=== PATIENT | male | born 1940 | race Caucasian/White ===

== ENCOUNTER → 2021-09-07 13:42 | Outpatient (BNVA) | payer MEDICARE, OTHER, SELFPAY | PROVIDERS: PCP Physician Assistant Medical; Visit Provider Nurse Practitioner Family | DX: G62.9 Polyneuropathy, unspecified (principal); M96.1 Postlaminectomy syndrome, not elsewhere classified; Z87.81 Personal history of (healed) traumatic fracture; Z87.898 Personal history of other specified conditions | CPT/HCPCS: 99202 ==

== ENCOUNTER 2021-09-15 13:18 | Outpatient (REF) | payer MEDICARE, OTHER, SELFPAY ==
--- NOTE | ~2021-09-15 | MR_ITS ---
MR LUMBAR SPINE WITHOUT AND WITH CONTRAST CLINICAL INFORMATION: Personal history of healed traumatic fracture. COMPARISON: None available. TECHNIQUE: MRI of the lumbar spine was obtained using routine sequences with and without contrast. Intravenous contrast: Gadavist 7.5 mL FINDINGS: There are 5 nonrib-bearing lumbar-type vertebral bodies. There is grade 1 retrolisthesis of L1 on L2, L2 on L3, and L3 on L4. There is grade 1 anterolisthesis of L5 on S1 in the setting of a chronic appearing left-sided L5 pars defect. There is grade 1 anterolisthesis of L4 on L5 as well. Chronic vertebral body burst fracture at L1 exhibiting 4 mm retropulsion that mildly narrows the central canal. The remaining vertebral body heights are maintained. There is no bone marrow edema to suggest an acute fracture. There are no suspicious enhancing intraosseous lesions. There is no pathologic intrathecal enhancement. There are multilevel endplate osteophytes. There is severe disc volume loss at L3-L4 and L5-S1. Disc desiccation at all lumbar levels. Conus terminates at the T12-L1 level. There is bilateral perinephric stranding. Colonic diverticulosis partially imaged. T12-L1: L1 upper endplate retropulsion mildly narrows the central canal. There is no foraminal stenosis. L1-L2: Grade 1 retrolisthesis. Diffuse annular disc bulge and mild bilateral hypertrophic facet arthropathy. There is no central canal stenosis. There is moderate right and mild left foraminal stenosis with mass effect on the exiting right L1 nerve root. L2-L3: Grade 1 retrolisthesis. Diffuse annular disc bulge and moderate bilateral facet arthropathy and ligamentum flavum thickening. No central canal stenosis. Moderate right-sided foraminal stenosis with mass effect on the exiting right L2 nerve root. L3-L4: There is grade 1 retrolisthesis. Diffuse disc osteophyte and severe bilateral facet arthropathy and ligamentum flavum thickening. Moderate central canal stenosis. Disc osteophyte and facet arthropathy result in severe bilateral foraminal stenosis with compression of the exiting L3 nerve roots bilaterally. L4-L5: There is grade 1 anterolisthesis. Uncovered disc osteophyte and severe bilateral facet arthropathy and ligamentum flavum thickening. Findings in concert result in moderate to severe central canal stenosis, bilateral subarticular zone stenosis with mass effect on the traversing L5 nerve roots bilaterally, and severe left foraminal stenosis with compression of the exiting left L4 nerve root. Laminectomy changes at this level. There is enhancing granulation/scar tissue within the epidural space at L4-L5. L5-S1: Grade 1 spondylolytic anterolisthesis. There is a left-sided L5 pars defect. Uncovered disc osteophyte. Severe bilateral facet arthropathy and ligamentum flavum thickening. Severe left and moderate right foraminal stenosis with compression of the exiting left L5 nerve root and mild mass effect on the exiting right L5 nerve root. A far left lateral disc osteophyte protrusion also compresses the extra foraminal left L5 nerve root. MR/MR lumbar spine wo/w con IMPRESSION: - Chronic vertebral body burst fracture at L1 exhibiting upper endplate retropulsion that mildly narrows the central canal. No acute fractures. - At L5-S1, there is grade 1 spondylolytic anterolisthesis in the setting of a chronic left-sided L5 pars defect that along with uncovered disc osteophyte results in severe left and moderate right foraminal stenosis with compression of the exiting left L5 nerve root and mild mass effect on the exiting right L5 nerve root. A far left lateral disc osteophyte protrusion also compresses the extra foraminal left L5 nerve root. - At L4-L5, grade 1 anterolisthesis and advanced multifactorial degenerative changes result in moderate to severe central canal stenosis, bilateral subarticular zone stenosis with mass effect on the traversing L5 nerve roots bilaterally, and severe left foraminal stenosis with compression of the exiting left L4 nerve root. Laminectomy changes at this level. There is enhancing granulation/scar tissue within the epidural space at L4-L5. - At L3-L4, multifactorial degenerative changes result in moderate central canal stenosis as well as severe bilateral foraminal stenosis with compression of the exiting L3 nerve roots bilaterally. - At L1-L2 and L2-L3, spondylitic changes result in moderate right-sided foraminal stenosis with mass effect on the exiting right nerve roots at these levels.
== END 2021-09-15 13:19 | disposition home or self-care (01) ==
LOC: HO.MRI 13:18
PROVIDERS: Visit Provider Nurse Practitioner Family
DX: G62.9 Polyneuropathy, unspecified (principal); M96.1 Postlaminectomy syndrome, not elsewhere classified; Z87.81 Personal history of (healed) traumatic fracture
CPT/HCPCS: 72158; A9585

== ENCOUNTER → 2021-10-01 14:06 | Outpatient (BNVA) | payer MEDICARE, OTHER, SELFPAY | PROVIDERS: PCP Physician Assistant Medical; Visit Provider Nurse Practitioner Family | DX: M96.1 Postlaminectomy syndrome, not elsewhere classified (principal); G62.9 Polyneuropathy, unspecified; Z87.81 Personal history of (healed) traumatic fracture; Z87.898 Personal history of other specified conditions | CPT/HCPCS: Q3014 ==

== ENCOUNTER → 2021-11-17 14:08 | Outpatient (BNVA) | payer MEDICARE, OTHER, SELFPAY | PROVIDERS: PCP Physician Assistant Medical; Visit Provider Anesthesiology | DX: M96.1 Postlaminectomy syndrome, not elsewhere classified (principal); G62.9 Polyneuropathy, unspecified; Z87.81 Personal history of (healed) traumatic fracture; Z87.898 Personal history of other specified conditions | CPT/HCPCS: 99212 ==

== ENCOUNTER → 2021-12-13 16:07 | Outpatient (BNVA) | payer MEDICARE, OTHER, SELFPAY | PROVIDERS: PCP Physician Assistant Medical; Visit Provider Anesthesiology | DX: M96.1 Postlaminectomy syndrome, not elsewhere classified (principal); G62.9 Polyneuropathy, unspecified; Z87.81 Personal history of (healed) traumatic fracture; Z87.898 Personal history of other specified conditions; M47.27 Other spondylosis with radiculopathy, lumbosacral region | CPT/HCPCS: Q3014 ==

== ENCOUNTER 2022-01-04 06:09 | Outpatient (REF) | payer MEDICARE, OTHER, SELFPAY ==
--- NOTE | ~2022-01-04 | FL_ITS ---
EXAMINATION: XR FLUOROSCOPY WITH IMAGES CLINICAL INFORMATION: M47.27 - Other spondylosis with radiculopathy, lumbosacral region COMPARISON: MR lumbar spine 09/15/2021 TECHNIQUE: Fluoroscopy performed by Dr. Sheldon Rosado. Fluoroscopy time: 0.6 minutes. Cumulative Dose: 10.3 mGy. DAP: 2.66 Gy-cm2. Images: 2. FINDINGS: There are spinal needles overlying the outer left L4 and L5 neural foramen. There is contrast seen in the respective nerve sheaths. Some early transforaminal epidural extension is suggested. No visible vascular communication. There are degenerative changes lumbar spine with multilevel disc narrowing and vertebral spurring. FL/FL guidance in treatment room IMPRESSION: Fluoroscopy for pain management procedures.
== END 2022-01-04 06:10 | disposition home or self-care (01) ==
LOC: CF 06:09
PROVIDERS: Visit Provider Anesthesiology
DX: M47.27 Other spondylosis with radiculopathy, lumbosacral region (principal); M48.061 Spinal stenosis, lumbar region without neurogenic claudication; M96.1 Postlaminectomy syndrome, not elsewhere classified; Z87.81 Personal history of (healed) traumatic fracture; Z87.898 Personal history of other specified conditions
CPT/HCPCS: 64483; 64484

== ENCOUNTER → 2022-01-31 08:28 | Outpatient (BNVA) | payer MEDICARE, OTHER, SELFPAY | PROVIDERS: PCP Physician Assistant Medical; Visit Provider Anesthesiology | DX: M96.1 Postlaminectomy syndrome, not elsewhere classified (principal); G62.9 Polyneuropathy, unspecified; M47.27 Other spondylosis with radiculopathy, lumbosacral region; Z87.81 Personal history of (healed) traumatic fracture; Z87.898 Personal history of other specified conditions | CPT/HCPCS: 99212 ==

== ENCOUNTER 2022-04-12 06:22 | Outpatient (REF) | payer MEDICARE, OTHER, SELFPAY | END 2022-04-12 06:23 | disposition home or self-care (01) | LOC: CF 06:22 | PROVIDERS: Visit Provider Anesthesiology | DX: Z13.89 Encounter for screening for other disorder (principal) ==

== ENCOUNTER 2022-04-19 06:04 | Outpatient (REF) | payer MEDICARE, OTHER, SELFPAY ==
--- NOTE | ~2022-04-19 | FL_ITS ---
EXAMINATION: XR FLUOROSCOPY WITH IMAGES CLINICAL INFORMATION: Other spondylosis with radiculopathy. COMPARISON: None. TECHNIQUE: Fluoroscopy Supervised By: LENIN Leal. Fluoroscopy Time: 0.8 minutes. Cumulative Dose: 10.7 mGy. DAP: 2.93 Gycm2. Images: 2. FINDINGS: There is a needle positioned adjacent to the inferior endplate of L4 vertebra with contrast opacifying the soft tissues. Loss of L3-L4, L4-L5 and L5-S1 disc heights with mild spondylosis noted. No lytic or sclerotic process. The SI joints faintly visualized are normal. FL/FL guidance in treatment room IMPRESSION: Fluoroscopy guidance was provided to the referrer for pain management.
== END 2022-04-19 06:05 | disposition home or self-care (01) ==
LOC: CF 06:04
PROVIDERS: Visit Provider Anesthesiology
DX: M47.27 Other spondylosis with radiculopathy, lumbosacral region (principal); M96.1 Postlaminectomy syndrome, not elsewhere classified; G62.9 Polyneuropathy, unspecified; Z87.81 Personal history of (healed) traumatic fracture; Z87.898 Personal history of other specified conditions
CPT/HCPCS: 64483; 64484

== ENCOUNTER → 2022-05-23 09:24 | Outpatient (BNVA) | payer MEDICARE, OTHER, SELFPAY | PROVIDERS: PCP Physician Assistant Medical; Visit Provider Anesthesiology | DX: M96.1 Postlaminectomy syndrome, not elsewhere classified (principal); M47.27 Other spondylosis with radiculopathy, lumbosacral region; G62.9 Polyneuropathy, unspecified; G89.4 Chronic pain syndrome; Z87.81 Personal history of (healed) traumatic fracture; Z87.898 Personal history of other specified conditions | CPT/HCPCS: Q3014 ==

== ENCOUNTER 2022-06-03 07:15 | Day surgery (SDC) | payer MEDICARE, OTHER, SELFPAY ==
[2022-05-30 16:27] VITALS: BMI 26.3
--- NOTE | 2022-06-02 11:52 | HO.ANESPROP2 ---
Documented by User: Ivonne Bellamy NP 06/02/22 11:54 HPI - Anesthesia Eval Consult details Narrative: 82yo M for Spinal Cord Stimulator Trial [facility] Active Problems Active Problems: All Active Problems (Updated 05/23/22 @ 09:38 by Sheldon Rosado MD) Chronic pain syndrome (Acute) Spondylosis of lumbosacral spine with radiculopathy (Acute) Lumbar facet arthropathy (Acute) Stenosis, spinal, lumbar (Acute) Preprocedural examination (Acute) History of prediabetes (Acute) H/O compression fracture of spine (Acute) Postlaminectomy syndrome, lumbar (Acute) Peripheral neuropathy (Acute) Past Medical History Medical History (Updated 06/03/22 @ 07:54 by Corinne Monteiro RN) BPH (benign prostatic hyperplasia) Degenerative disc disease, lumbar Depression History of prediabetes HLD (hyperlipidemia) HTN (hypertension) Hx of sleep apnea Surgical History Surgical History (Updated 06/03/22 @ 07:55 by Corinne Monteiro RN) Hx of bilateral cataract extraction Hx of carpal tunnel repair Hx of colonoscopy Hx of inguinal hernia repair Hx of tonsillectomy Previous back surgery Social History Social History Patient Tobacco Use Status: Never used Tobacco Use of substances other than those prescribed or required for medical reasons: No Are you DNR?: Yes Advance Directives: No Advance Directives Information Provided: Yes Meds Allergies Allergy/AdvReac Type Severity Reaction Status Date / Time No Known Allergies Allergy Verified 06/03/22 07:55 Home Medications Medication Instructions Recorded Confirmed Last Taken Type atorvastatin 20 mg tablet 20 mg PO DAILY 09/07/21 05/23/22 Unknown History glucos 500 mg-chond 66.7 mg-msm tab PO 09/07/21 05/23/22 Unknown History 500 mg-hyalur 1.1 mg-regis borate tablet (Move Free Plus MSM) losartan 25 mg tablet 25 mg PO DAILY 09/07/21 05/23/22 Unknown History sertraline 100 mg tablet 100 mg PO DAILY 09/07/21 05/23/22 Unknown History tamsulosin 0.4 mg capsule 0.4 mg PO DAILY 09/07/21 05/23/22 Unknown History Fish Oil PO DAILY 06/03/22 Unknown History ferrous sulfate PO DAILY 06/03/22 Unknown History Exam Exam Date and Time: June 02, 2022 1152 Height,Weight and Vital Signs: Height 5 ft 7 in Weight 76.204 kg Assessment and Plan Assessment Anesthesia Assessment: Chart Reviewed Documented by User: Sen Goncalves MD 06/03/22 08:19 [facility] Past Medical History Medical History (Updated 06/03/22 @ 07:54 by Corinne Monteiro, JJ) BPH (benign prostatic hyperplasia) Degenerative disc disease, lumbar Depression History of prediabetes HLD (hyperlipidemia) HTN (hypertension) Hx of sleep apnea Family History Family history of problems with anesthesia: No Surgical History Surgical History (Updated 06/03/22 @ 07:55 by Corinne Monteiro, JJ) Hx of bilateral cataract extraction Hx of carpal tunnel repair Hx of colonoscopy Hx of inguinal hernia repair Hx of tonsillectomy Previous back surgery History of Problems with Anesthesia: No Social History Social History Patient Tobacco Use Status: Never used Tobacco Use of substances other than those prescribed or required for medical reasons: No Are you DNR?: Yes Advance Directives: No Advance Directives Information Provided: Yes Meds Allergies Allergy/AdvReac Type Severity Reaction Status Date / Time No Known Allergies Allergy Verified 06/03/22 07:55 Home Medications Medication Instructions Recorded Confirmed Last Taken Type atorvastatin 20 mg tablet 20 mg PO DAILY 09/07/21 05/23/22 Unknown History glucos 500 mg-chond 66.7 mg-msm tab PO 09/07/21 05/23/22 Unknown History 500 mg-hyalur 1.1 mg-regis borate tablet (Move Free Plus MSM) losartan 25 mg tablet 25 mg PO DAILY 09/07/21 05/23/22 Unknown History sertraline 100 mg tablet 100 mg PO DAILY 09/07/21 05/23/22 Unknown History tamsulosin 0.4 mg capsule 0.4 mg PO DAILY 09/07/21 05/23/22 Unknown History Fish Oil PO DAILY 06/03/22 Unknown History ferrous sulfate PO DAILY 06/03/22 Unknown History Exam Airway Mallampati Class: II TM Dist: <=3cm Neck ROM: Limited Heart: rrr Lungs: cta Assessment and Plan Assessment Anesthesia Assessment: Anesthesia Plan Discussed Final Anesthetic Review Family History of Problems with Anesthesia: No History of Problems with Anesthesia: No NPO: Yes ASA Class: II Final Preanesthetic Review: No Changes in Pt Med Stat, Meds/Allgs Chart Reviewed, Consent Obtained/Reviewed and Anes Risks/Benef Reviewed Patient Risk: Intermediate Procedure Risk: Low Anesthetic Plan Anesthetic Plan: GA Disposition: Standard PACU
[2022-06-03] VITALS (13 sets, daily range): BP systolic 117–158; BP diastolic 63–88; PULSE 47–72; RESP 14–18; TEMP 36.2–36.4; O2SAT 95–99
--- NOTE | ~2022-06-03 | FL_ITS ---
EXAMINATION: XR FLUOROSCOPY WITH IMAGES CLINICAL INFORMATION: Spinal cord stimulator trial. COMPARISON: None available. TECHNIQUE: Fluoroscopy Supervised By: Dr. Sheldon Rosado. Fluoroscopy Time: 5.8 minutes. Cumulative Dose: 89.6 mGy. DAP: 22.5 Gycm2. Images: 2. FINDINGS: There are 2 lateral images revealing spinal stimulator positioned in the posterior epidural space in the lower dorsal spine. Visualized bones are grossly unremarkable. FL/FL guidance in OR IMPRESSION: Fluoroscopy was provided to referring physician for spinal stimulator trial.
[2022-06-03] MEDS: Lactated Ringers 1,000 ML 100 ML IVCONT (08:22)
--- NOTE | 2022-06-03 08:36 | MHC.SHP ---
Pre-Procedural Eval Section A Date of Service: 06/03/22 The patient is an INPATIENT: No Changes since office visit: Yes Patient answered all questions The History & Physical has been completed within 30 days and I have reviewed it.: No Section B Chief Complaint: Postlaminectomy syndrome, Chronic pain syndrome Details of Present Illness: as above Relevant Family History (Specify if Yes): No Relevant Social History: None Present Medications: see Short Stay Collaborative assessment Medical History: No relevant PMH History of Previous Operations: No relevant previous surgery Allergies: Allergies Allergy/AdvReac Type Severity Reaction Status Date / Time No Known Allergies Allergy Verified 06/03/22 07:55 Review of Systems Sugical H&P ROS: Negative: Constitution, Cardiovascular, Respiratory, Neurological, Psychiatric, Hem-Onc, Allergic/Immunologic, Gastrointestinal, Genitourinary, Musculoskeletal, Integumentary, Endocrine and Eyes/Ears/Nose/Throat Exam Surgical H&P Exam: Normal: HEENT, Normal: Heart, Normal: Lungs, Normal: Extremities, Normal: Abdomen, Normal: Skin and Normal: Neurological Plan Diagnosis/Plan: Unchanged I have reviewed the history and physical and performed a pertinent physical examination on my patient. No changes have occurred unless specified. Time Spent With Patient Time: Total time managing care of this patient today ____ minutes.
--- NOTE | 2022-06-03 08:43 | W.PM.OPN ---
Operative Note Operative Note Date of Service: 06/03/22 Narrative: Mr. Marcano who came today into the operating room for the trial of spinal cord stimulator Nevro for the treatment of postlaminectomy syndrome pain and perypheral polyneuropathy... Preoperatively patient received? Cefazolin 2 g? approximately 30 min before procedure. After obtaining informed consent patient was brought to the operating room, HE was positioned? supine on the stretcher, [place] monitors were applied and patient was? administered general endotracheal anesthesia.? After that patient was transferred prone to the operating room table with all pressure points protected.? ? Time-out was performed delineating correct site, side, the nature of the procedure, patient's allergy, preoperative antibiotic if needed.? All operating room staff was participating in OR time-out procedure. Patient's entire back was prepped with ChloraPrep twice and draped with full body fenestrated drape.? Sterilely draped C-arm was brought over operating field and sqare picture of T11-T12, L1, L2 vertebrae as were demonstrated on the screen.? On the image L1-[id number] space was very narrow it would need an angle close to perpendicular to the skin epidural needle insertion. Advancement of the epidural leads was problematic to this angle in correct anatomical position. The decision was made to concentrate the attention on T12- L1 interlaminar spave.? The location of the projection of the right pedicle center of the _L2 vertebra was found on the skin using C-arm.? This location was injected with mixture of lidocaine 2% and Marcaine 0.5% 5 cc.? After that 11 blade was used to make a vy on the skin.? 10 cm 14 gauge introducer epidural needle was inserted through the vy and advanced to L1-L2 epidural interspace.? The advancement of the needle was performed on anterior posterior and lateral views.?YAMILA to air was used to detect epidural space. ? That advancement was proven to be very difficult.? Multiple attempts were made to reach epidural space with proper angle of the epidural needle.? Eventually epidural space was found however the guitar wire inserted through the needle went inrathecally and CSF was detected at the needle. The needle was withdrawn and pressure was applied.?The decision was made to switch the target to L2- L3 epidural interspace . There the epidural space was detected and located uneventfully however the advancement of the epidural stimulating lead was very difficult due to proximity of the site to the site of the surgery of the patient and formation of the epidural adhesions.. The decision was made to switch the target to [id number] interspace.? Introducer epidural needle was brought up on the? table and inserted through the skin in the projection of the L1 pedicle on the right. the needle was advancing to were the [id number] interspace on anterior posterior and lateral views.Guitar wire and loss of resistance technique were used to locate epidural space.? When guitar wire was spread in the epidural fashion, epidural lead was inserted through the needle and it was advanced to top T8 position PRACTICALLY at THE MIDLINE in the posterior epidural space.? After that location of the projection of the LEFT pedicle center of the L1 vertebra was found on the skin using C-arm.? This location was injected with mixture of lidocaine 2% and Marcaine 0.5% 5 cc.? After that 11 blade was used to make a vy on the skin.? 10 cm 14 gauge? introducer epidural needle was inserted through the vy and advanced toT11- T12 epidural interspace.? The advancement of the needle was done on AP and lateral views, YAMILA to air was used to detect epidural space, guitar wire was advanced to the needle and was spreading in epidural fashion and after that epidural stimulation lead was inserted through the needle and was advancing to the posterior epidural space to the level of T9 upper third of the vertebra with the position slightly left to midline wire. The position of the leads verified on anterior posterior and lateral views,The stilets and epidural needle were withdrawn and care was taken not to dislodge the epidural leads. The anchoring devices were dislodged on the leads and advanced to the level of the skin.? The anchoring device was sutured with two 0-0 silk sutures for each anchor to the skin of the patient.? The screws were tighten on the anchoring devices until 3 clicks were heard. The leads were connected to testing device.? Bacitracin ointment was applied to the entrance point of the needle entrance on the right.? the contralateral left vy on the skin was glued with Mastisol and covered with to Steri-Strips.? Sterile dressing applied.? The lead was connected to stimulating device which was taped to the skin. The impedance was checked and it was appropriate. The patient tolerated procedure well.? He was taking outside of the operating room to recovery room where he recovered uneventfully. He was examined postoperatively and found to have no neurological deficits. Risk of PDPH was explained to the patient.
--- NOTE | 2022-06-03 10:54 | P.BOP_ITS ---
Brief Operative Note Date of Service: 06/03/22 Pre-op diagnosis: postlaminectomy syndrome Post-op diagnosis: same Procedure: trial of Nevro SCS Implants: none permanent Surgeon: Sheldon Rosado MD Anesthesia: GETA Was an [employer]person [employer] used for this Procedure?: No Estimated blood loss (mL): 4 Condition: stable Disposition: PACU
== END 2022-06-03 13:40 | disposition home or self-care (01) ==
PROVIDERS: PCP Pediatrics; Visit Provider Anesthesiology
PROC: (CPT 63650; principal; 2022-06-03 09:00)
DX: M96.1 Postlaminectomy syndrome, not elsewhere classified (principal); G62.9 Polyneuropathy, unspecified; M48.061 Spinal stenosis, lumbar region without neurogenic claudication; M47.27 Other spondylosis with radiculopathy, lumbosacral region; M51.36 Other intervertebral disc degeneration, lumbar region; G89.4 Chronic pain syndrome; G47.33 Obstructive sleep apnea (adult) (pediatric); R73.03 Prediabetes; Z79.899 Other long term (current) drug therapy; Z87.81 Personal history of (healed) traumatic fracture; Z87.898 Personal history of other specified conditions; Z66 Do not resuscitate
CPT/HCPCS: 63650 ×2; C1713; C1897; J0690; J1100; J2370; J2405; J2795

== ENCOUNTER → 2022-06-09 09:46 | Outpatient (BNVA) | payer MEDICARE, OTHER, SELFPAY | PROVIDERS: PCP Pediatrics; Visit Provider Anesthesiology | DX: G89.4 Chronic pain syndrome (principal); M47.27 Other spondylosis with radiculopathy, lumbosacral region; G62.9 Polyneuropathy, unspecified; M96.1 Postlaminectomy syndrome, not elsewhere classified; Z87.81 Personal history of (healed) traumatic fracture; Z87.898 Personal history of other specified conditions | CPT/HCPCS: 99212 ==

== ENCOUNTER 2022-07-08 07:28 | Day surgery (SDC) | payer MEDICARE, OTHER, SELFPAY ==
[2022-07-05 16:39] VITALS: BMI 25.2
--- NOTE | 2022-07-07 10:51 | P.CONAN_ITS ---
Documented by User: Ivonne Bellamy NP 07/07/22 10:52 HPI - Anesthesia Eval Consult details Narrative: 82yo M for Lumbar Spinal Stimulation Implant s/p trial 05/2022 with GA-ETT 8 PMFSH Active Problems Active Problems: All Active Problems (Updated 06/03/22 @ 07:54 by Corinne Monteiro, JJ) Peripheral neuropathy (Acute) Postlaminectomy syndrome, lumbar (Acute) H/O compression fracture of spine (Acute) Preprocedural examination (Acute) Stenosis, spinal, lumbar (Acute) Lumbar facet arthropathy (Acute) Spondylosis of lumbosacral spine with radiculopathy (Acute) Chronic pain syndrome (Acute) Past Medical History Medical History (Updated 06/03/22 @ 07:54 by Corinne Monteiro RN) BPH (benign prostatic hyperplasia) Degenerative disc disease, lumbar Depression History of prediabetes HLD (hyperlipidemia) HTN (hypertension) Hx of sleep apnea Family History Family history of problems with anesthesia: No Surgical History Surgical History (Updated 06/03/22 @ 07:55 by Corinne Monteiro RN) Hx of bilateral cataract extraction Hx of carpal tunnel repair Hx of colonoscopy Hx of inguinal hernia repair Hx of tonsillectomy Previous back surgery History of Problems with Anesthesia: No Social History Social History Patient Tobacco Use Status: Never used Tobacco Meds Allergies Allergy/AdvReac Type Severity Reaction Status Date / Time No Known Allergies Allergy Verified 06/09/22 10:08 Home Medications Medication Instructions Recorded Confirmed Last Taken Type atorvastatin 20 mg tablet 20 mg PO DAILY 09/07/21 06/09/22 Unknown History glucos 500 mg-chond 66.7 mg-msm tab PO 09/07/21 06/09/22 Unknown History 500 mg-hyalur 1.1 mg-regis borate tablet (Move Free Plus MSM) losartan 25 mg tablet 25 mg PO DAILY 09/07/21 06/09/22 Unknown History sertraline 100 mg tablet 100 mg PO DAILY 09/07/21 06/09/22 Unknown History tamsulosin 0.4 mg capsule 0.4 mg PO DAILY 09/07/21 06/09/22 Unknown History Fish Oil PO DAILY 06/03/22 06/09/22 Unknown History ferrous sulfate PO DAILY 06/03/22 06/09/22 Unknown History Exam Exam Date and Time: July 07, 2022 1051 Height,Weight and Vital Signs: Height 5 ft 7 in Weight 73.028 kg Assessment and Plan Assessment Anesthesia Assessment: Chart Reviewed Final Anesthetic Review Family History of Problems with Anesthesia: No History of Problems with Anesthesia: No Documented by User: Albert Jolley MD 07/08/22 08:08 REPLACED BY [facility] Past Medical History Medical History (Updated 06/03/22 @ 07:54 by Corinne Monteiro, RN) BPH (benign prostatic hyperplasia) Degenerative disc disease, lumbar Depression History of prediabetes HLD (hyperlipidemia) HTN (hypertension) Hx of sleep apnea Surgical History Surgical History (Updated 06/03/22 @ 07:55 by Corinne Monteiro RN) Hx of bilateral cataract extraction Hx of carpal tunnel repair Hx of colonoscopy Hx of inguinal hernia repair Hx of tonsillectomy Previous back surgery Social History Social History Patient Tobacco Use Status: Never used Tobacco Meds Allergies Allergy/AdvReac Type Severity Reaction Status Date / Time No Known Allergies Allergy Verified 06/09/22 10:08 Home Medications Medication Instructions Recorded Confirmed Last Taken Type atorvastatin 20 mg tablet 20 mg PO DAILY 09/07/21 06/09/22 Unknown History glucos 500 mg-chond 66.7 mg-msm tab PO 09/07/21 06/09/22 Unknown History 500 mg-hyalur 1.1 mg-regis borate tablet (Move Free Plus MSM) losartan 25 mg tablet 25 mg PO DAILY 09/07/21 06/09/22 Unknown History sertraline 100 mg tablet 100 mg PO DAILY 09/07/21 06/09/22 Unknown History tamsulosin 0.4 mg capsule 0.4 mg PO DAILY 09/07/21 06/09/22 Unknown History Fish Oil PO DAILY 06/03/22 06/09/22 Unknown History ferrous sulfate PO DAILY 06/03/22 06/09/22 Unknown History Exam Airway Mallampati Class: I TM Dist: >3cm Loose/Missing/Broken Teeth: Yes and Lower Heart: rrr Lungs: clear Assessment and Plan Final Anesthetic Review NPO: Yes ASA Class: I Patient Risk: Low Procedure Risk: Low Anesthetic Plan Anesthetic Plan: GA Disposition: Standard PACU
[2022-07-08] VITALS (9 sets, daily range): BP systolic 129–151; BP diastolic 55–84; PULSE 57–78; RESP 15–18; TEMP 36.2–37.2; O2SAT 94–99
--- NOTE | ~2022-07-08 | FL_ITS ---
EXAMINATION: XR FLUOROSCOPY WITH IMAGES CLINICAL INFORMATION: Lumbar spinal stimulator implant COMPARISON: MR lumbar spine 09/15/2020 TECHNIQUE: Fluoroscopy Supervised By: Dr. Sheldon Rosado. Fluoroscopy Time: 1.8 minutes. Cumulative Dose: 32.1 mGy. DAP: 8.75 Gycm2. Images: 3. FINDINGS: There are 2 spinal stimulator electrodes seen ascending the posterior spinal canal. The electrode tips are at level of mid to mid lower thoracic spine. There is no visible kinking or defect of the leads. FL/FL guidance in OR IMPRESSION: Fluoroscopy for pain management procedure.
[2022-07-08] MEDS: Lactated Ringers 1,000 ML 100 ML IVCONT (08:16)
--- NOTE | 2022-07-08 08:41 | PC.NURSE ---
Dr. Rosado stated he does not want MRSA screen as ordered.
--- NOTE | 2022-07-08 08:48 | P.HPSUR_ITS ---
Pre-Procedural Eval Section A Date of Service: 07/08/22 The patient is an INPATIENT: No Changes since office visit: Yes Patient answered all questions The History & Physical has been completed within 30 days and I have reviewed it.: No Section B Chief Complaint: Postlaminectomy syndrome, not elsewhere classified Details of Present Illness: as above Relevant Family History (Specify if Yes): No Relevant Social History: None Present Medications: see Short Stay Collaborative assessment Medical History: No relevant PMH History of Previous Operations: Relevant previous surgery/procedure and date(s) Allergies: Allergies Allergy/AdvReac Type Severity Reaction Status Date / Time No Known Allergies Allergy Verified 06/09/22 10:08 Review of Systems Sugical H&P ROS: Negative: Constitution, Cardiovascular, Respiratory, Neurological, Psychiatric, Hem-Onc, Allergic/Immunologic, Gastrointestinal, Genitourinary, Musculoskeletal, Integumentary, Endocrine and Eyes/Ear s/Nose/Throat Exam Surgical H&P Exam: Normal: HEENT, Normal: Heart, Normal: Lungs, Normal: Extremities, Normal: Abdomen, Normal: Skin and Normal: Neurological Plan Diagnosis/Plan: Unchanged I have reviewed the history and physical and performed a pertinent physical examination on my patient. No changes have occurred unless specified. Time Spent With Patient Time: Total time managing care of this patient today ___10_ minutes.
--- NOTE | 2022-07-08 11:22 | PM.OP ---
Brief Operative Note Date of Service: 07/08/22 Pre-op diagnosis: postlaminectomy syndrome Post-op diagnosis: same Procedure: implantation of Nevro SCS Implants: Omnia SCS battery and two epidural leads Surgeon: Sheldon Rosado MD Anesthesia: GETA Was an Information [employer] Systems Instructor used for this Procedure?: No Estimated blood loss (mL): 10 Pathology: none sent Condition: stable Disposition: PACU
--- NOTE | 2022-07-08 11:24 | W.PM.OPN ---
Operative Note Operative Note Date of Service: 07/08/22 Narrative: Jairo is very pleasant 82 y.o. gentleman who came today into the operating room for trial of spinal cord stimulator [employer] for the treatment of postlaminectomy syndrome pain. ?Preoperatively patient received ? cefazolin 2 g approximately 10 minutes before the procedure. After obtaining informed consent the patient was brought to the operating room, HE was positioned supine on the bed , [place] [employer] monitors were applied and GETA was induced. The patient was transferred on the operating table prone , all pressure points were protected. ?Time-out was performed delineating correct site, side, the nature of the procedure, patient's allergy, preoperative antibiotic if needed.? All operating room staff was participating in OR time-out procedure. Patient's entire back was prepped with Chloraprep twice and draped with full body fenestrated laparoscopy drape including ioban film.? Sterilely draped C-arm was brought over operating field and square picture of the ?T11 T12-L1 L2 vertebrae? were demonstrated on the screen. Local anesthetic was injected in the projection of the T12-L1 spinous processes and after that 6 cm long incision was me strictly in the midline. The incision was widened and deepened using dull dissection and electrocautery device. WithLainer retractor was used to widen the wound And overlying tissues were freed until prevertebral fascia.. Thorough hemostasis was obtained using cautery. ?Attention FIRST? was concentrated on the T11 T12 epidural interspace.? The location of the projection of the right pedicle center of the L1 vertebra was found on the skin using C-arm.?10 cm 14 gauge? introducer epidural needle was inserted through the vy and advanced to? T11- T12 epidural interspace.? The advancement of the needle was performed on anterior posterior and lateral views. Loss of resistance to air? technique were used to locate epidural space., epidural lead was inserted through the needle and it was advanced to ? top of T8 vertebra projection strictly to the midline. ? . After that? the location of the projection of the LEFT pedicle center of the? L1 vertebra was found on the skin using C-arm.? This location was injected with mixture of lidocaine 2% and Marcaine 0.5% 5 cc.? 10 cm 14 gauge introducer epidural needle was inserted through the vy and advanced to T11-T12 epidural interspace.? The advancement of the needle was performed on anterior posterior and lateral views.? Guitar wire and loss of resistance to air technique were used to locate epidural space.? When guitar wire was spread in the epidural fashion, epidural lead was inserted through the needle and advanced to the top of T9 epidural interspace slightly? left to the existing electrode. On the lateral view the patient had the leads positioned in the posterior epidural space. After that the epidural introducer needles were removed with care taken to keep the epidural leads in place. Anchoring devices were obtained and they were dislodged on the bodies of the epidural leads till the reach the prevertebral fascia. 0-0 Tycron sutures were used to suture the anchoring devices to prevertebral fascia bilaterally. Care was taken not to dislodge epidural leads again. after that this anchoring screws were tightened on both sides until 2 clicks were heard. Wound was irrigating using normal saline mixed with vancomycin and packed with a vancomycin soaked 4 x 4. After that attention was concentrated on the patient's right loin area where patient wanted to implant the battery. Horizontal incision 6 cm long was me to cm below projection of the lowest Rib on the right. The incision was widened and deepened using dull dissection and electrocautery device. Thorough hemostasis was obtained. the pocket was formed extending caudad from the above described decision. Thorough hemostasis was obtained. Irrigation was performed with the solution as above. After that tunneling device was used to connect both wounds. The epidural leads were dislodged to the lateral wound. They were connected to omnia [employer] battery and screws were used to fix both leads in the body of the battery. Impedance was checked in was satisfactory. After that to anchoring 0-0 screws were made in most superior lateral and most superior medial corners of the wound. After that the anchoring sutures were connected to the orifices to the battery. The battery was dislodged into the wound With leads gathered behind the body of the battery. Anchoring sutures were tied. irrigation was performed. After that both wounds were closed using 0-0 Polysorb sutures, 0-2 police serve sutures were used to approximate the level of the skin and after that skin was closed with janette. Bacitracin ointment was applied to the staple lines. 4X4s were applied to the wounds. They were fixed to the skin with Tegaderm. Upon completion of the procedure patient was awaken extubated and taken to the PACU for recovery. He recovered uneventfully.
== END 2022-07-08 13:25 | disposition home or self-care (01) ==
PROVIDERS: PCP Pediatrics; Visit Provider Anesthesiology
PROC: (CPT 63685; principal; 2022-07-08 09:00)
DX: M96.1 Postlaminectomy syndrome, not elsewhere classified (principal); G89.4 Chronic pain syndrome; M47.27 Other spondylosis with radiculopathy, lumbosacral region; G62.9 Polyneuropathy, unspecified; M51.36 Other intervertebral disc degeneration, lumbar region; M21.70 Unequal limb length (acquired), unspecified site; I10 Essential (primary) hypertension; E78.5 Hyperlipidemia, unspecified; Z79.899 Other long term (current) drug therapy; Z66 Do not resuscitate; Z98.890 Other specified postprocedural states; Z87.898 Personal history of other specified conditions
CPT/HCPCS: 63685; 63650 ×2; C1713; C1778; C1787; C1816; J0690; J1100; J2405; J2795; J3010; J3370

== ENCOUNTER → 2022-07-14 09:51 | Outpatient (BNVA) | payer MEDICARE, OTHER, SELFPAY | PROVIDERS: PCP Pediatrics; Visit Provider Anesthesiology | DX: M96.1 Postlaminectomy syndrome, not elsewhere classified (principal); M47.27 Other spondylosis with radiculopathy, lumbosacral region; G62.9 Polyneuropathy, unspecified; G89.4 Chronic pain syndrome; Z96.82 Presence of neurostimulator; Z87.81 Personal history of (healed) traumatic fracture | CPT/HCPCS: 99212 ==

== ENCOUNTER → 2022-07-20 10:30 | Outpatient (BNVA) | payer MEDICARE, OTHER, SELFPAY | PROVIDERS: PCP Pediatrics; Visit Provider Anesthesiology | DX: M96.1 Postlaminectomy syndrome, not elsewhere classified (principal); M47.27 Other spondylosis with radiculopathy, lumbosacral region; G62.9 Polyneuropathy, unspecified; G89.4 Chronic pain syndrome; Z96.89 Presence of other specified functional implants; Z87.898 Personal history of other specified conditions; Z87.81 Personal history of (healed) traumatic fracture | CPT/HCPCS: 99212 ==

== ENCOUNTER → 2022-07-27 13:43 | Outpatient (BNVA) | payer MEDICARE, OTHER, SELFPAY | PROVIDERS: PCP Pediatrics; Visit Provider Anesthesiology | DX: M96.1 Postlaminectomy syndrome, not elsewhere classified (principal); M47.27 Other spondylosis with radiculopathy, lumbosacral region; G62.9 Polyneuropathy, unspecified; G89.4 Chronic pain syndrome; Z87.81 Personal history of (healed) traumatic fracture; Z87.898 Personal history of other specified conditions | CPT/HCPCS: 99212 ==

== ENCOUNTER → 2022-08-08 12:47 | Outpatient (BNVA) | payer MEDICARE, OTHER, SELFPAY | PROVIDERS: PCP Pediatrics; Visit Provider Anesthesiology | DX: M96.1 Postlaminectomy syndrome, not elsewhere classified (principal); M51.36 Other intervertebral disc degeneration, lumbar region; M47.27 Other spondylosis with radiculopathy, lumbosacral region; G89.4 Chronic pain syndrome; G62.9 Polyneuropathy, unspecified; Z87.81 Personal history of (healed) traumatic fracture; Z87.898 Personal history of other specified conditions | CPT/HCPCS: 99212 ==

== ENCOUNTER → 2022-09-19 15:16 | Outpatient (BNVA) | payer MEDICARE, OTHER, SELFPAY | PROVIDERS: PCP Pediatrics; Visit Provider Anesthesiology | DX: M96.1 Postlaminectomy syndrome, not elsewhere classified (principal); M47.27 Other spondylosis with radiculopathy, lumbosacral region; G62.9 Polyneuropathy, unspecified; G89.4 Chronic pain syndrome; G57.02 Lesion of sciatic nerve, left lower limb; Z87.81 Personal history of (healed) traumatic fracture; Z87.898 Personal history of other specified conditions | CPT/HCPCS: 99212 ==

== ENCOUNTER → 2022-10-20 10:51 | Outpatient (BNVA) | payer MEDICARE, OTHER, SELFPAY | PROVIDERS: PCP Pediatrics; Visit Provider Anesthesiology | DX: Z96.82 Presence of neurostimulator (principal) | CPT/HCPCS: 99211 ==

== ENCOUNTER → 2022-11-07 08:37 | Outpatient (BNVA) | payer MEDICARE, OTHER, SELFPAY | PROVIDERS: PCP Pediatrics; Visit Provider Anesthesiology | DX: G57.02 Lesion of sciatic nerve, left lower limb (principal); M96.1 Postlaminectomy syndrome, not elsewhere classified | CPT/HCPCS: J3301 ==

== ENCOUNTER 2022-11-08 06:02 | Outpatient (REF) | payer MEDICARE, OTHER, SELFPAY | END 2022-11-08 06:03 | disposition home or self-care (01) | LOC: CF 06:02 | PROVIDERS: Visit Provider Anesthesiology | DX: M96.1 Postlaminectomy syndrome, not elsewhere classified (principal); G62.9 Polyneuropathy, unspecified; M47.27 Other spondylosis with radiculopathy, lumbosacral region; G57.02 Lesion of sciatic nerve, left lower limb; G89.4 Chronic pain syndrome; Z87.81 Personal history of (healed) traumatic fracture; Z87.898 Personal history of other specified conditions | CPT/HCPCS: 20552; J2795; J3301 ==

== ENCOUNTER 2022-11-08 09:57 | Outpatient (AMB) | payer MEDICARE, OTHER, SELFPAY ==
[2022-11-08 10:15] VITALS: BP 118/84; PULSE 64; RESP 14; O2SAT 98; BMI 25.7
--- NOTE | 2022-11-08 10:15 | MHC.OFFVIS ---
Intake Vital Signs 11/08/22 10:15 11/08/22 12:00 Height 5 ft 7 in 5 ft 7 in Weight 164 lb 164 lb BMI 25.7 25.7 BP 118/84 110/80 Blood Pressure Location Lt brachial Lt brachial Position Sitting Sitting Respiration 14 14 Pulse 64 63 Pulse Source Pulse Oximeter Pulse Oximeter Pulse Oximetry (%) 98 95 Oxygen Delivery Method Room Air Room Air Comment pre-op post-op Intake Visit Reasons: L THERAPEUTIC PIRIFORMIS INJ W/ US Allergies No Known Allergies Allergy (Verified 11/08/22 10:15) PFS Medical History (Updated 09/19/22 @ 15:55 by Sheldon Rosado MD) BPH (benign prostatic hyperplasia) Degenerative disc disease, lumbar Depression History of prediabetes HLD (hyperlipidemia) HTN (hypertension) Hx of sleep apnea Surgical History Hx of bilateral cataract extraction Hx of carpal tunnel repair Hx of colonoscopy Hx of inguinal hernia repair Hx of tonsillectomy Previous back surgery Social History Patient Tobacco Use Status: Never used Tobacco Physical Exam Vital Signs: Last Vital Signs Pulse 63 11/08/22 12:00 Resp 14 11/08/22 12:00 BP 110/80 11/08/22 12:00 Pulse Ox 95 11/08/22 12:00 Oxygen Delivery Method Room Air 11/08/22 12:00 BMI result Body Mass Index 25.7 Results Reviewed Results Reviewed: 11/08/22 11:03 ROPivacaine HCl/PF 0.5% [Naropin 0.5%] 150 mg .ROUTE .STK-MED ONE Triamcinolone Acetonide [Kenalog-40] 40 mg .ROUTE .STK-MED ONE Assessment & Plan Assessment & Plan (1) Postlaminectomy syndrome, lumbar: Code(s): M96.1 - Postlaminectomy syndrome, not elsewhere classified (2) Peripheral neuropathy: Code(s): G62.9 - Polyneuropathy, unspecified (3) H/O compression fracture of spine: Code(s): Z87.81 - Personal history of (healed) traumatic fracture (4) History of prediabetes: Code(s): Z87.898 - Personal history of other specified conditions (5) Spondylosis of lumbosacral spine with radiculopathy: Code(s): M47.27 - Other spondylosis with radiculopathy, lumbosacral region (6) Chronic pain syndrome: Code(s): G89.4 - Chronic pain syndrome (7) Piriformis syndrome of left side: Code(s): G57.02 - Lesion of sciatic nerve, left lower limb Plan: Piriformis muscle injection left therapeutic. ? ?Informed consent was explained to the patient. All questions were explained and? answered.? The patient was taken inside the operating room where he was positioned prone on the operating table. Time-out was performed delineating correct site, side, the nature of the procedure, patient's allergy, . All operating room staff was participating in OR time-out procedure. ? ? The lower back and left buttock were prepped with ChloraPrep and draped with sterile towels.? Sterilily draped US probe was brought over the field and picture od gluteus nela muscle and piriformis muscle were demonstrated on the screen . Rotation of the left hip medially and laterally helped to identify the piriformis muscle. 100 mm echostim needle was inserted through the skin extra- anatomically and it was advanced toward the piriformis muscle. When the tip if the needle reached the body of the piriformis muscle injection of the saline was performed demonstrating appropriate spread of saline . After that injection of the solution of ropivacaine 0.5% mixed with kenalog 40 mg total 10 mls was performed under direct view of the Ultrasound image. Upon completion of the injectio n needle was removed and bandaid was applied. The patient tolerated the procedure well. Plan Good results of Nevro SCS implant. He reports excellent results of the spinal cord stimulation , he reports better mobility better activities of daily living however on the background of relieved axial lumbar pain the pain as described above became more prominent. On physical exam left piriformis muscle and left piriformis syndrome is suspected. I offered this patient therapeutic left piriformis muscle injection. He does not need sedation for this procedure. I will see this patient for the follow-up after the injection. Orders: Orders US guide needle placement Today G57.02 - Lesion of sciatic nerve, left lower limb Coding Level of Care Code Procedure Only Diagnoses Postlaminectomy syndrome, lumbar M96.1 Peripheral neuropathy G62.9 H/O compression fracture of spine Z87.81 History of prediabetes Z87.898 Spondylosis of lumbosacral spine with radiculopathy M47.27 Chronic pain syndrome G89.4 Piriformis syndrome of left side G57.02
[2022-11-08 12:00] VITALS: BP 110/80; PULSE 63; RESP 14; O2SAT 95; BMI 25.7
== END 2022-11-08 11:46 | disposition home or self-care (01) ==
LOC: HO.PMCPRC 09:57
PROVIDERS: PCP Pediatrics; Visit Provider Anesthesiology
DX: M79.18 Myalgia, other site (principal)
CPT/HCPCS: 20552

== ENCOUNTER 2022-12-15 09:46 | Outpatient (REF) | payer MEDICARE, OTHER, SELFPAY ==
--- NOTE | ~2022-12-15 | XR_ITS ---
EXAMINATION: XR THORACOLUMBAR SPINE CLINICAL INFORMATION: Postlaminectomy syndrome, not elsewhere classified COMPARISON: None available. TECHNIQUE: AP, lateral and Swimmer's view of the thoracic spine FINDINGS: The bones are diffusely demineralized. There is mild rotatory curve of the thoracic spine, convex left. There is moderate compression of the T3 vertebral body. There is mild anterior wedge compression of T6 and T7. There is multilevel disc space narrowing in the thoracic spine Multilevel degenerative disc disease is seen in the mid and lower cervical spine. Electrodes extend up to the level of T7-T8. Anterior bronchial thickening is seen within the lungs. There are marked increased interstitial markings within the left lower lung. XR/XR thoracic spine 2V IMPRESSION: 1. Mild rotatory curve of the thoracic spine, convex left. 2. Moderate compression of the T3 vertebral body. 3. Mild anterior wedge compression of T6 and T7. 4. Multilevel degenerative disc disease in the thoracic spine.
== END 2022-12-15 09:47 | disposition home or self-care (01) ==
LOC: HO.XRAY 09:46
PROVIDERS: PCP Pediatrics; Visit Provider Anesthesiology
DX: M96.1 Postlaminectomy syndrome, not elsewhere classified (principal); T85.192A Other mechanical complication of implanted electronic neurostimulator of spinal cord electrode (lead), initial encounter
CPT/HCPCS: 72070; 99212

== ENCOUNTER 2022-12-15 09:46 | Outpatient (AMB) | payer MEDICARE, OTHER, SELFPAY ==
--- NOTE | 2022-12-15 10:00 | A.OFFVIS_ITS ---
Intake Vital Signs 12/15/22 10:05 Height 5 ft 7 in Weight 161 lb 8 oz BMI 25.3 BP 134/82 Blood Pressure Location Lt brachial Position Sitting Respiration 16 Pulse 70 Pulse Source Pulse Oximeter Pulse Oximetry (%) 97 Oxygen Delivery Method Room Air Intake Visit Reasons: L THERA PIRIFORMIS INJ W/ US 11/08/22/LVM Intake Note: patient comes in for post-op. Allergies No Known Allergies Allergy (Verified 12/15/22 10:06) HPI HPI Comments History of Present Illness Details Jairo is back in my office for evaluation of the SCS and evaluation of the results of the left piriformis injection. He is in the examination room with Tari Coronado who is working on Adjustment of the stimulation. Ivonne expressed concerns about position of the stimulating electrodes and requested me to send the patient to the thoracic spine x ray to rule out dislodgment of the leads, I will send the order. The patient reports 50 % pain improvement in the left posterior thigh after the left us guided piriformis injection, the injection was therapeutic with steroids. he was offered this procedure when he started to c/o left side of the hip pain. He reported that prior to implantation of spinal cord stimulator this pain was bothering him as well however it was on the background of stronger pain in the axial lumbar spine. Now with good treatment available for axial lumbar spine from spinal cord stimulator he reports this pain coming to for ground. He reports pain in the left buttock. On palpation this pain is approximately in the projection of the exit of the sciatic nerve on the left from the pelvis on the surface of the leg. The medial rotation of the hip results in pain aggravation. The patient reports pain increase with standing and walking. He had implantation more than 2 months ago therefore steroid injection are safe for this gentleman. Prior:implant Nevro SCS which was done on 07/08/2022 ?He had succesful trial on 06/03/2022.? left L4-5 L5-S1 transforaminal epidural steroid injection was performed on 04/19/2022.? He reports almost a month of complete pain relief.? He reports after that pain is slowly starting to come back.? He reports better mobility still better activities of daily living, and better social interactions.? However he is interested in some more continual and more permanent pain relief.? He was subject of psychological evaluation by a [facility] and he was approved for the interventional procedures.? He wants me to schedule him for SCS trial.? He received left L4-5 L5-S1 transforaminal epidural steroid injection previously on? 01/04/2022.? It has been almost 1 month since the injection.? He reports better mobility better interactions better activities of daily living.? He repor ts 85% pain improvement.? He is asking if his pain will come back how soon we can repeat the procedure. ?He is ambulating with a cane . the pain started about 4-5 years ago without any inciting events and has progressively worsened. He is s/p L4-L5 fusion with Dr. Jeffries in approximately 2018. He denies any hardware. He did sustain a compression fracture s/p fall about two years ago, evaluated again by Dr. Jeffries with no surgical intervention offered. He reports the pain starts in the center of his low back and radiates to across the back then travels down the left leg laterally to the dorsal aspect of his foot. He also reports neuropathy from his feet radiating to his calves/knees with associated numbness and tingling. He notes that he is unable to walk barefoot unless he is ambulating on a soft surface otherwise it will result in severe pain. He reports needing bilateral foot braces due to drop foot which began to develop about 1-2 years ago. He also has a shoe lift on the left due to a reported 1 inch leg length discrepancy which has been present since childhood. ?The pain is exacerbated by prolonged positioning as well as ambulation. He does report some alleviation with laying flat. He has been taking tylenol with little to no effect on pain.? He has attempted physical therapy in the past about two years ago for approximately one year with minimal alleviation in pain and was mainly to increase strength.? Denies any chiropractic manipulation, massage or acupuncture. Denies any previous back injections and any recent lumbar spine MRI or EMG of BLE.. COUNTS INCLUDE 234 BEDS AT THE [facility] Medical History (Updated 12/15/22 @ 10:06 by Sheldon Rosado MD) Degenerative disc disease, lumbar Hx of sleep apnea BPH (benign prostatic hyperplasia) Depression HLD (hyperlipidemia) HTN (hypertension) History of prediabetes Surgical History Hx of colonoscopy Hx of carpal tunnel repair Hx of inguinal hernia repair Hx of bilateral cataract extraction Hx of tonsillectomy Previous back surgery Social History Patient Tobacco Use Status: Never used Tobacco Review of Systems Const All systems reviewed & are unremarkable except as noted in HPI and below Physical Exam Vital Signs: Last Vital Signs Pulse 70 12/15/22 10:05 Resp 16 12/15/22 10:05 BP 134/82 12/15/22 10:05 Pulse Ox 97 12/15/22 10:05 Oxygen Delivery Method Room Air 12/15/22 10:05 BMI result Body Mass Index 25.3 Const General: cooperative and no acute distress Nutritional Appearance: average body habitus Orientation/consciousness: patient oriented x3 Limitations: ambulation with cane HEENT Head: Yes normal to inspection, Yes normocephalic and Yes atraumatic Ears: hearing grossly normal bilaterally Eyes General: appearance normal, both eyes and all related structures Neck Neck: Yes normal visual inspection, Yes supple and Yes no JVD Resp Effort & Inspection: normal respiratory effort, able to speak in complete sentences and no audible wheezes Cardio Jugular venous distension: no JVD Peripheral pulses: Peripheral pulses 2+ throughout (no appreciable rhythmic abnormalities) Back/Spine/Pelvis Other: Patient able to walk on heels with minimal difficulties and unable to walk on tip toes due to weakness (pt with foot drop currently wearing orthotics). Can flex forward almost touching the ground and extend to 10-20 degrees before experiencing lumbar pain. Reports more pain with lumbar extension. Demonstrates 4/5 strength of quadriceps bilaterally as well as flexion bilateral feet against resistance. Significant weakness with dorsiflexion of bilateral feet. Straight leg rise with dorsiflexion negative on the right and the positive on the left. DTR diminished. Facet loading test negative. Kamran test is negative bilaterally. Pelvic compression test is negative bilaterally. Palpation of the lumbar spine paraspinal spinal region is negative for pain increase. Palpation of lumbar sacral junction is tender on the center area and also tender on left paraspinal region. There is a tenderness on palpation in the projection of the left hip posteriorly at the point where sciatic nerve exits grater sciatic foramina from under piriformis muscle. Neuro General: patient oriented x3 Gait exam (Neuro): Antalgic gait present and Assisted gait required Results Reviewed Results Reviewed: LUMBAR SPINE MRI FINDINGS: There are 5 nonrib-bearing lumbar-type vertebral bodies. There is grade 1 retrolisthesis of L1 on L2, L2 on L3, and L3 on L4. There is grade 1 anterolisthesis of L5 on S1 in the setting of a chronic appearing left-sided L5 pars defect. There is grade 1 anterolisthesis of L4 on L5 as well. Chronic vertebral body burst fracture at L1 exhibiting 4 mm retropulsion that mildly narrows the central canal. The remaining vertebral body heights are maintained. There is no bone marrow edema to suggest an acute fracture. There are no suspicious enhancing intraosseous lesions. There is no pathologic intrathecal enhancement. There are multilevel endplate osteophytes. There is severe disc volume loss at L3-L4 and L5-S1. Disc desiccation at all lumbar levels. Conus terminates at the T12-L1 level. There is bilateral perinephric stranding. Colonic diverticulosis partially imaged. T12-L1: L1 upper endplate retropulsion mildly narrows the central canal. There is no foraminal stenosis. L1-L2: Grade 1 retrolisthesis. Diffuse annular disc bulge and mild bilateral hypertrophic facet arthropathy. There is no central canal stenosis. There is moderate right and mild left foraminal stenosis with mass effect on the exiting right L1 nerve root. L2-L3: Grade 1 retrolisthesis. Diffuse annular disc bulge and moderate bilateral facet arthropathy and ligamentum flavum thickening. No central canal stenosis. Moderate right-sided foraminal stenosis with mass effect on the exiting right L2 nerve root. L3-L4: There is grade 1 retrolisthesis. Diffuse disc osteophyte and severe bilateral facet arthropathy and ligamentum flavum thickening. Moderate central canal stenosis. Disc osteophyte and facet arthropathy result in severe bilateral foraminal stenosis with compression of the exiting L3 nerve roots bilaterally. L4-L5: There is grade 1 anterolisthesis. Uncovered disc osteophyte and severe bilateral facet arthropathy and ligamentum flavum thickening. Findings in concert result in moderate to severe central canal stenosis, bilateral subarticular zone stenosis with mass effect on the traversing L5 nerve roots bilaterally, and severe left foraminal stenosis with compression of the exiting left L4 nerve root. Laminectomy changes at this level. There is enhancing granulation/scar tissue within the epidural space at L4-L5. L5-S1: Grade 1 spondylolytic anterolisthesis. There is a left-sided L5 pars defect. Uncovered disc osteophyte. Severe bilateral facet arthropathy and ligamentum flavum thickening. Severe left and moderate right foraminal stenosis with compression of the exiting left L5 nerve root and mild mass effect on the exiting right L5 nerve root. A far left lateral disc osteophyte protrusion also compresses the extra foraminal left L5 nerve root. IMPRESSION: - Chronic vertebral body burst fracture at L1 exhibiting upper endplate retropulsion that mildly narrows the central canal. No acute fractures. ? - At L5-S1, there is grade 1 spondylolytic anterolisthesis in the setting of a chronic left-sided L5 pars defect that along with uncovered disc osteophyte results in severe left and moderate right foraminal stenosis with compression of the exiting left L5 nerve root and mild mass effect on the exiting right L5 nerve root. A far left lateral disc osteophyte protrusion also compresses the extra foraminal left L5 nerve root. ? - At L4-L5, grade 1 anterolisthesis and advanced multifactorial degenerative changes result in moderate to severe central canal stenosis, bilateral subarticular zone stenosis with mass effect on the traversing L5 nerve roots bilaterally, and severe left foraminal stenosis with compression of the exiting left L4 nerve root. Laminectomy changes at this level. There is enhancing granulation/scar tissue within the epidural space at L4-L5. ? - At L3-L4, multifactorial degenerative changes result in moderate central canal stenosis as well as severe bilateral foraminal stenosis with compression of the exiting L3 nerve roots bilaterally. ? - At L1-L2 and L2-L3, spondylitic changes result in moderate right-sided foraminal stenosis with mass effect on the exiting right nerve roots at these levels. Assessment & Plan Assessment & Plan (1) Postlaminectomy syndrome, lumbar: Code(s): M96.1 - Postlaminectomy syndrome, not elsewhere classified (2) Spinal cord stimulator dysfunction: Code(s): T85.192A - Other mechanical complication of implanted electronic neurostimulator of spinal cord electrode (lead), initial encounter (3) Peripheral neuropathy: Code(s): G62.9 - Polyneuropathy, unspecified (4) H/O compression fracture of spine: Code(s): Z87.81 - Personal history of (healed) traumatic fracture (5) History of prediabetes: Code(s): Z87.898 - Personal history of other specified conditions (6) Spondylosis of lumbosacral spine with radiculopathy: Code(s): M47.27 - Other spondylosis with radiculopathy, lumbosacral region (7) Chronic pain syndrome: Code(s): G89.4 - Chronic pain syndrome (8) Piriformis syndrome of left side: Code(s): G57.02 - Lesion of sciatic nerve, left lower limb Plan Initially there were good results of Nevro SCS implant. However patient now states that the stimulation started to fade out. He was sent for x-ray of the thoracic spine today and the position of the electrodes seem to be appropriate. His top electrode disposition at T8 level and the bottom electrode position at T9 level, the both electrodes are positioned strictly posterior. He will be working with Nevro SCS policy services representative to adjust the stimulation to his satisfaction. At the same time he has severe left more than right foraminal stenosis at L4-5 and L5-S1, with compression of both traversing L5 and exiting L4 nerve root at the left L4-5, there is central canal stenosis moderate to severe at L5-S1 mostly due to spondylolisthesis secondary to the pars defect. L4-5 also has evidence of laminectomy changes and scar tissues in the epidural space. There are some Modic type changes in the MRI which also could contribute to the pain generation. All of the above could be taken into consideration next time patient is here for discussion of the SCS and further mode of treatment. Orders: Orders XR thoracic spine 2V 12/15/22 M96.1 - Postlaminectomy syndrome, not elsewhere classified, T85.192A - Other mechanical complication of implanted electronic neurostimulator of spinal cord electrode (lead), initial encounter Coding Level of Care Code Est Pt Level 4 (50500) Diagnoses Postlaminectomy syndrome, lumbar M96.1 Spinal cord stimulator dysfunction T85.192A Peripheral neuropathy G62.9 H/O compression fracture of spine Z87.81 History of prediabetes Z87.898 Spondylosis of lumbosacral spine with radiculopathy M47.27 Chronic pain syndrome G89.4 Piriformis syndrome of left side G57.02
[2022-12-15 10:05] VITALS: BP 134/82; PULSE 70; RESP 16; O2SAT 97; BMI 25.3
== END 2022-12-15 10:16 | disposition home or self-care (01) ==
PROVIDERS: PCP Pediatrics; Visit Provider Anesthesiology
DX: M96.1 Postlaminectomy syndrome, not elsewhere classified (principal); T85.192A Other mechanical complication of implanted electronic neurostimulator of spinal cord electrode (lead), initial encounter; G62.9 Polyneuropathy, unspecified; Z87.81 Personal history of (healed) traumatic fracture; Z87.898 Personal history of other specified conditions; M47.27 Other spondylosis with radiculopathy, lumbosacral region; G89.4 Chronic pain syndrome; G57.02 Lesion of sciatic nerve, left lower limb
CPT/HCPCS: 99214

== ENCOUNTER 2022-12-22 08:29 | Outpatient (AMB) | payer MEDICARE, OTHER, SELFPAY ==
[2022-12-22 08:50] VITALS: BP 134/80; PULSE 70; RESP 16; O2SAT 96; BMI 25.7
--- NOTE | 2022-12-22 08:50 | MHC.OFFVIS ---
Intake Vital Signs 12/22/22 08:50 Height 5 ft 7 in Weight 164 lb 6 oz BMI 25.7 BP 134/80 Blood Pressure Location Rt brachial Position Sitting Respiration 16 Pulse 70 Pulse Source Pulse Oximeter Pulse Oximetry (%) 96 Oxygen Delivery Method Room Air Intake Visit Reasons: Post X ray/ Confirmed. Intake Note: patient comes in to discuss xray results. Allergies No Known Allergies Allergy (Verified 12/22/22 08:52) HPI HPI Comments History of Present Illness Details Jairo is back in my office for evaluation of the SCS position of the leads. on the x-ray it appears to me that the electrode leads are properly positioned in the thoracic spine.Attention is attracted today that most discomfort that experience is the complaint on pain in the bilateral buttocks, bilateral hips and bilateral groins while standing and walking. He reports exacerbation of the pain with the attempts to rotate bilateral hips laterally as well as medially. Bilateral hip osteoarthritis is suspected and the patient is sent for the bilateral hip x-rays. He had reported moderate pain relieve with left piriformis injection, however that injection was done with steroids and may have to be a systemic anti-inflammatory steroid effect. We decided that I will schedule him for bilateral hip x-ray and schedule him for bilateral diagnostic hip injection without any steroids. Prior:implant Nevro SCS which was done on 07/08/2022 ?He had succesful trial on 06/03/2022.? left L4-5 L5-S1 transforaminal epidural steroid injection was performed on 04/19/2022.? He reports almost a month of complete pain relief.? He reports after that pain is slowly starting to come back.? He reports better mobility still better activities of daily living, and better social interactions.? However he is interested in some more continual and more permanent pain relief.? He was subject of psychological evaluation by a [facility] and he was approved for the interventional procedures.? He wants me to schedule him for SCS trial.? He received left L4-5 L5-S1 transforaminal epidural steroid injection previously on? 01/04/2022.? It has been almost 1 month since the injection.? He reports better mobility better interactions better activities of daily living.? He reports 85% pain improvement.? He is asking if his pain will come back how soon we can repeat the procedure. ?He is ambulating with a cane . the pain started about 4-5 years ago without any inciting events and has progressively worsened. He is s/p L4-L5 fusion with Dr. Jeffries in approximately 2018. He denies any hardware. He did sustain a compression fracture s/p fall about two years ago, evaluated again by Dr. Jeffries with no surgical intervention offered. He reports the pain starts in the center of his low back and radiates to across the back then travels down the left leg laterally to the dorsal aspect of his foot. He also reports neuropathy from his feet radiating to his calves/knees with associated numbness and tingling. He notes that he is unable to walk barefoot unless he is ambulating on a soft surface otherwise it will result in severe pain. He reports needing bilateral foot braces due to drop foot which began to develop about 1-2 years ago. He also has a shoe lift on the left due to a reported 1 inch leg length discrepancy which has been present since childhood. ?The pain is exacerbated by prolonged positioning as well as ambulation. He does report some alleviation with laying flat. He has been taking tylenol with little to no effect on pain.? He has attempted physical therapy in the past about two years ago for approximately one year with minimal alleviation in pain and was mainly to increase strength.? Denies any chiropractic manipulation, massage or acupuncture. Denies any previous back injections and any recent lumbar spine MRI or EMG of BLE.. [facility] Medical History (Updated 12/22/22 @ 09:04 by Sheldon Rosado MD) Degenerative disc disease, lumbar Hx of sleep apnea BPH (benign prostatic hyperplasia) Depression HLD (hyperlipidemia) HTN (hypertension) History of prediabetes Surgical History Hx of colonoscopy Hx of carpal tunnel repair Hx of inguinal hernia repair Hx of bilateral cataract extraction Hx of tonsillectomy Previous back surgery Social History Patient Tobacco Use Status: Never used Tobacco Review of Systems Const All systems reviewed & are unremarkable except as noted in HPI and below Physical Exam Vital Signs: Last Vital Signs Pulse 70 12/22/22 08:50 Resp 16 12/22/22 08:50 BP 134/80 12/22/22 08:50 Pulse Ox 96 12/22/22 08:50 Oxygen Delivery Method Room Air 12/22/22 08:50 BMI result Body Mass Index 25.7 Const General: cooperative and no acute distress Nutritional Appearance: average body habitus Orientation/consciousness: patient oriented x3 Limitations: ambulation with cane HEENT Head: Yes normal to inspection, Yes normocephalic and Yes atraumatic Ears: hearing grossly normal bilaterally Eyes General: appearance normal, both eyes and all related structures Neck Neck: Yes normal visual inspection, Yes supple and Yes no JVD Resp Effort & Inspection: normal respiratory effort, able to speak in complete sentences and no audible wheezes Cardio Jugular venous distension: no JVD Peripheral pulses: Peripheral pulses 2+ throughout (no appreciable rhythmic abnormalities) Back/Spine/Pelvis Other: Patient able to walk on heels with minimal difficulties and unable to walk on tip toes due to weakness (pt with foot drop currently wearing orthotics). Can flex forward almost touching the ground and extend to 10-20 degrees before experiencing lumbar pain. Reports more pain with lumbar extension. Demonstrates 4/5 strength of quadriceps bilaterally as well as flexion bilateral feet against resistance. Significant weakness with dorsiflexion of bilateral feet. Straight leg rise with dorsiflexion negative on the right and the positive on the left. DTR diminished. Facet loading test negative. Kamran test is negative bilaterally. Pelvic compression test is negative bilaterally. Palpation of the lumbar spine paraspinal spinal region is negative for pain increase. Palpation of lumbar sacral junction is tender on the center area and also tender on left paraspinal region. . Neuro General: patient oriented x3 Gait exam (Neuro): Antalgic gait present and Assisted gait required Extrem Other: lateral as well as medial rotation of the bilateral hip joints caused pain exacerbation in the bilateral groins. Assessment & Plan Assessment & Plan (1) Postlaminectomy syndrome, lumbar: Code(s): M96.1 - Postlaminectomy syndrome, not elsewhere classified (2) Spinal cord stimulator dysfunction: Code(s): T85.192A - Other mechanical complication of implanted electronic neurostimulator of spinal cord electrode (lead), initial encounter (3) Peripheral neuropathy: Code(s): G62.9 - Polyneuropathy, unspecified (4) H/O compression fracture of spine: Code(s): Z87.81 - Personal history of (healed) traumatic fracture (5) History of prediabetes: Code(s): Z87.898 - Personal history of other specified conditions (6) Spondylosis of lumbosacral spine with radiculopathy: Code(s): M47.27 - Other spondylosis with radiculopathy, lumbosacral region (7) Chronic pain syndrome: Code(s): G89.4 - Chronic pain syndrome (8) Piriformis syndrome of left side: Code(s): G57.02 - Lesion of sciatic nerve, left lower limb (9) Osteoarthritis, hip, bilateral: Code(s): M16.0 - Bilateral primary osteoarthritis of hip (10) Hip pain, bilateral: Code(s): M25.551 - Pain in right hip; M25.552 - Pain in left hip Plan Initially there were good results of Nevro SCS implant. However patient now states that the stimulation started to fade out. He was sent for x-ray of the thoracic spine today and the position of the electrodes seem to be appropriate. His top electrode disposition at T8 level and the bottom electrode position at T9 level, the both electrodes are positioned strictly posterior. he has severe left more than right foraminal stenosis at L4-5 and L5-S1, with compression of both traversing L5 and exiting L4 nerve root at the left L4-5, there is central canal stenosis moderate to severe at L5-S1 mostly due to spondylolisthesis secondary to the pars defect. L4-5 also has evidence of laminectomy changes and scar tissues in the epidural space. There are some Modic type changes in the MRI which also could contribute to the pain generation. In the past he had TFESI with moderate success however the effect did not last long enough and he was offered Nevro SCS. attention was attracted today to the fact that his pain starts in bilateral buttocks and radiates in the bilateral lateral hips and bilateral groins. The rotation of the hip laterally and medially causes exacerbation of the groin pain. Plan of care: He will continue to work with Ivonne, the [employer] rep. to improve stimulation parameters to help his pain better, however if his pain is mostly from the joints it is nociceptive and inflammatofy pain and SCS will not likely make this pain better. I will send him for x-ray of the bilateral hip joints, I will schedule him for the diagnostic bilateral hip injections with ropivacain only, no steroids. I will re-evaluate him after the x-ray and diagnostic injections are completed on his post injection follow up appointment. Orders: Orders XR hips CHRISTINA min 3V 12/22/22 M16.0 - Bilateral primary osteoarthritis of hip, M25.551 - Pain in right hip, M25.552 - Pain in left hip Coding Level of Care Code Est Pt Level 4 (17202) Diagnoses Postlaminectomy syndrome, lumbar M96.1 Spinal cord stimulator dysfunction T85.192A Peripheral neuropathy G62.9 H/O compression fracture of spine Z87.81 History of prediabetes Z87.898 Spondylosis of lumbosacral spine with radiculopathy M47.27 Chronic pain syndrome G89.4 Piriformis syndrome of left side G57.02 Osteoarthritis, hip, bilateral M16.0 Hip pain, bilateral M25.551; M25.552
== END 2022-12-22 09:14 | disposition home or self-care (01) ==
PROVIDERS: PCP Pediatrics; Visit Provider Anesthesiology
DX: M96.1 Postlaminectomy syndrome, not elsewhere classified (principal); T85.192A Other mechanical complication of implanted electronic neurostimulator of spinal cord electrode (lead), initial encounter; G62.9 Polyneuropathy, unspecified; Z87.81 Personal history of (healed) traumatic fracture; Z87.898 Personal history of other specified conditions; M47.27 Other spondylosis with radiculopathy, lumbosacral region; G89.4 Chronic pain syndrome; G57.02 Lesion of sciatic nerve, left lower limb; M16.0 Bilateral primary osteoarthritis of hip; M25.551 Pain in right hip; M25.552 Pain in left hip
CPT/HCPCS: 99214

== ENCOUNTER 2022-12-22 08:29 | Outpatient (REF) | payer MEDICARE, OTHER, SELFPAY | END 2022-12-22 08:30 | disposition home or self-care (01) | LOC: HO.XRAY 08:29 | PROVIDERS: PCP Pediatrics; Visit Provider Anesthesiology | DX: M16.0 Bilateral primary osteoarthritis of hip (principal); M54.50 Low back pain, unspecified; M96.1 Postlaminectomy syndrome, not elsewhere classified; T85.192A Other mechanical complication of implanted electronic neurostimulator of spinal cord electrode (lead), initial encounter; G62.9 Polyneuropathy, unspecified; M47.27 Other spondylosis with radiculopathy, lumbosacral region; G89.4 Chronic pain syndrome; G57.02 Lesion of sciatic nerve, left lower limb; Z87.81 Personal history of (healed) traumatic fracture; Z87.898 Personal history of other specified conditions | CPT/HCPCS: 73522; 99212 ==

== ENCOUNTER 2023-01-10 06:13 | Outpatient (REF) | payer MEDICARE, OTHER, SELFPAY ==
--- NOTE | ~2023-01-10 | FL_ITS ---
EXAMINATION: XR FLUOROSCOPY WITH IMAGES CLINICAL INFORMATION: Pain in right hip. Bilateral hip injections. COMPARISON: None available. TECHNIQUE: Fluoroscopy Supervised By: Dr. Sheldon Rosado. Fluoroscopy Time: 0.8 minutes. Cumulative Dose: 12.9 mGy. DAP: 0.224 Gycm2. Images: 4. FINDINGS: Images demonstrate needle placement and contrast injection of the bilateral hip joints FL/FL guidance in treatment room IMPRESSION: Fluoroscopy guidance for pain management procedure
== END 2023-01-10 06:14 | disposition home or self-care (01) ==
LOC: CF 06:13
PROVIDERS: Visit Provider Anesthesiology
DX: M16.0 Bilateral primary osteoarthritis of hip (principal); M25.551 Pain in right hip; M25.552 Pain in left hip
CPT/HCPCS: 20610; J2795; Q9967

== ENCOUNTER 2023-01-10 13:53 | Outpatient (AMB) | payer MEDICARE, OTHER, SELFPAY ==
[2023-01-10 13:59] VITALS: BP 142/82; PULSE 66; RESP 18; O2SAT 94; BMI 25.7
--- NOTE | 2023-01-10 13:59 | A.OFFVIS_ITS ---
Intake Vital Signs 01/10/23 13:59 01/10/23 14:59 Height 5 ft 7 in 5 ft 7 in Weight 164 lb 164 lb BMI 25.7 25.7 BP 142/82 H 130/80 Blood Pressure Location Lt brachial Lt brachial Position Sitting Sitting Respiration 18 16 Pulse 66 95 Pulse Source Pulse Oximeter Pulse Oximeter Pulse Oximetry (%) 94 95 Oxygen Delivery Method Room Air Room Air Comment Pre-Op Post-Op Intake Visit Reasons: BILAT DX HIP INJ/LOCAL Allergies No Known Allergies Allergy (Verified 12/22/22 08:52) [facility] Medical History (Updated 12/22/22 @ 09:04 by Sheldon Rosado MD) Degenerative disc disease, lumbar Hx of sleep apnea BPH (benign prostatic hyperplasia) Depression HLD (hyperlipidemia) HTN (hypertension) History of prediabetes Surgical History Hx of colonoscopy Hx of carpal tunnel repair Hx of inguinal hernia repair Hx of bilateral cataract extraction Hx of tonsillectomy Previous back surgery Social History Patient Tobacco Use Status: Never used Tobacco Physical Exam Vital Signs: Last Vital Signs Pulse 95 01/10/23 14:59 Resp 16 01/10/23 14:59 BP 130/80 01/10/23 14:59 Pulse Ox 95 01/10/23 14:59 Oxygen Delivery Method Room Air 01/10/23 14:59 BMI result Body Mass Index 25.7 Assessment & Plan Assessment & Plan (1) Hip pain, bilateral: Code(s): M25.551 - Pain in right hip; M25.552 - Pain in left hip (2) Osteoarthritis, hip, bilateral: Code(s): M16.0 - Bilateral primary osteoarthritis of hip Plan bilateral diagnostic hip injection. Informed consent was explained to the patient. All questions were explained and answered. The patient was taken inside of the operating room where he was positioned left lateral decubitus on operating table.. Time-out was performed delineating patient's name and date of , correct site, side, the nature of the procedure, patient's allergy, preoperative antibiotic if needed, need for VT prophylaxis.. All operating room staff was participating in OR time-out procedure. Right hip area of the patient was prepped with ChloraPrep and draped with sterile towels. C-arm was brought over the operating field and picture of left and right lateral views of the bilateral hip joints were delineated on the screen. The smaller joint silhouette was chosen as the target. Projection of the right trochanter to the skin was chosen as the initial needle insertion point. After that the skin and subcutaneous tissues was anesthetized with 2% lidocaine 2.5 mL. 22 gauge 5 in long needle was inserted through the skin and started to advance to the joint space under intermittent lateral and anterior posterior views. When needle entered the capsule of the joint small amount of the contrast was injected delineating intra-articular space. After that treatment solution containing 5 mls of ropivacaine 0.5% was injected into the joint. The needle was withdrawn sterile dressing was applied. After that the patient was turned on the right side and the left hip injection was performed in the same very fashion with the same doses of the medications as abive. The patient tolerated procedure well Orders: Orders FL guidance in treatment room 01/10/23 M25.551 - Pain in right hip, M25.552 - Pain in left hip Coding Level of Care Code Procedure Only Diagnoses Hip pain, bilateral M25.551; M25.552 Osteoarthritis, hip, bilateral M16.0
[2023-01-10 14:59] VITALS: BP 130/80; PULSE 95; RESP 16; O2SAT 95; BMI 25.7
== END 2023-01-10 14:48 | disposition home or self-care (01) ==
LOC: HO.PMCPRC 13:53
PROVIDERS: PCP Pediatrics; Visit Provider Anesthesiology
DX: M16.0 Bilateral primary osteoarthritis of hip (principal)
CPT/HCPCS: 20610; 77002

== ENCOUNTER 2023-01-12 10:29 | Outpatient (AMB) | payer MEDICARE, OTHER, SELFPAY ==
--- NOTE | 2023-01-12 10:38 | MHC.OFFVIS ---
Intake Vital Signs 01/12/23 10:44 Height 5 ft 7 in Weight 163 lb BMI 25.5 BP 140/76 H Blood Pressure Location Lt brachial Position Sitting Respiration 14 Pulse 67 Pulse Source Pulse Oximeter Pulse Oximetry (%) 96 Oxygen Delivery Method Room Air Intake Visit Reasons: BILAT DX HIP INJ 01/10/23/lvm Allergies No Known Allergies Allergy (Verified 01/12/23 10:43) HPI HPI Comments History of Present Illness Details Jairo is back in my office for the evaluation of the results of bilateral diagnostic hip joint injections. Patient reports about 40% pain improvement on the procedure, however he reports that he failed to perform most painful maneuvers in for 6 hours which would be aggravating his pain so he missed the most crucial time to evaluate the procedure. I decided to offer him therapeutic left hip injection now with steroids and by virtue of the comparison of the right and left side determine whether not the hip joints are his pain generator. I will schedule the procedure accordingly. Prior: evaluation of the SCS position of the leads electrode leads are properly positioned in the thoracic spine. He experience the complaint on pain in the bilateral buttocks, bilateral hips and bilateral groins while standing and walking. He reports exacerbation of the pain with the attempts to rotate bilateral hips laterally as well as medially. Bilateral hip osteoarthritis is suspected and the patient is sent for the bilateral hip x-rays. He had reported moderate pain relieve with left piriformis injection, however that injection was done with steroids and may have to be a systemic anti-inflammatory steroid effect. We decided that I will schedule him for bilateral hip x-ray and schedule him for bilateral diagnostic hip injection without any steroids. Prior:implant Nevro SCS which was done on 07/08/2022 ?He had succesful trial on 06/03/2022.? left L4-5 L5-S1 transforaminal epidural steroid injection was performed on 04/19/2022.? He reports almost a month of complete pain relief.? He reports after that pain is slowly starting to come back.? He reports better mobility still better activities of daily living, and better social interactions.? However he is interested in some more continual and more permanent pain relief.? He was subject of psychological evaluation by a [facility] and he was approved for the interventional procedures.? He wants me to schedule him for SCS trial.? He received left L4-5 L5-S1 transforaminal epidural steroid injection previously on? 01/04/2022.? It has been almost 1 month since the injection.? He reports better mobility better interactions better activities of daily living.? He reports 85% pain improvement.? He is asking if his pain will come back how soon we can repeat the procedure. ?He is ambulating with a cane . the pain started about 4-5 years ago without any inciting events and has progressively worsened. He is s/p L4-L5 fusion with Dr. Jeffries in approximately 2018. He denies any hardware. He did sustain a compression fracture s/p fall about two years ago, evaluated again by Dr. Jeffries with no surgical intervention offered. He reports the pain starts in the center of his low back and radiates to across the back then travels down the left leg laterally to the dorsal aspect of his foot. He also reports neuropathy from his feet radiating to his calves/knees with associated numbness and tingling. He notes that he is unable to walk barefoot unless he is ambulating on a soft surface otherwise it will result in severe pain. He reports needing bilateral foot braces due to drop foot which began to develop about 1-2 years ago. He also has a shoe lift on the left due to a reported 1 inch leg length discrepancy which has been present since childhood. ?The pain is exacerbated by prolonged positioning as well as ambulation. He does report some alleviation with laying flat. He has been taking tylenol with little to no effect on pain.? He has attempted physical therapy in the past about two years ago for approximately one year with minimal alleviation in pain and was mainly to increase strength.? Denies any chiropractic manipulation, massage or acupuncture. Denies any previous back injections and any recent lumbar spine MRI or EMG of BLE.. [facility] Medical History (Updated 12/22/22 @ 09:04 by Sheldon Rosado MD) Degenerative disc disease, lumbar Hx of sleep apnea BPH (benign prostatic hyperplasia) Depression HLD (hyperlipidemia) HTN (hypertension) History of prediabetes Surgical History Hx of colonoscopy Hx of carpal tunnel repair Hx of inguinal hernia repair Hx of bilateral cataract extraction Hx of tonsillectomy Previous back surgery Social History Patient Tobacco Use Status: Never used Tobacco Review of Systems Const All systems reviewed & are unremarkable except as noted in HPI and below Physical Exam Vital Signs: Last Vital Signs Pulse 67 01/12/23 10:44 Resp 14 01/12/23 10:44 BP 140/76 H 01/12/23 10:44 Pulse Ox 96 01/12/23 10:44 Oxygen Delivery Method Room Air 01/12/23 10:44 BMI result Body Mass Index 25.5 Const General: cooperative and no acute distress Nutritional Appearance: average body habitus Orientation/consciousness: patient oriented x3 Limitations: ambulation with cane HEENT Head: Yes normal to inspection, Yes normocephalic and Yes atraumatic Ears: hearing grossly normal bilaterally Eyes General: appearance normal, both eyes and all related structures Neck Neck: Yes normal visual inspection, Yes supple and Yes no JVD Resp Effort & Inspection: normal respiratory effort, able to speak in complete sentences and no audible wheezes Cardio Jugular venous distension: no JVD Peripheral pulses: Peripheral pulses 2+ throughout (no appreciable rhythmic abnormalities) Back/Spine/Pelvis Other: Patient able to walk on heels with minimal difficulties and unable to walk on tip toes due to weakness (pt with foot drop currently wearing orthotics). Can flex forward almost touching the ground and extend to 10-20 degrees before experiencing lumbar pain. Reports more pain with lumbar extension. Demonstrates 4/5 strength of quadriceps bilaterally as well as flexion bilateral feet against resistance. Significant weakness with dorsiflexion of bilateral feet. Straight leg rise with dorsiflexion negative on the right and the positive on the left. DTR diminished. Facet loading test negative. Kamran test is negative bilaterally. Pelvic compression test is negative bilaterally. Palpation of the lumbar spine paraspinal spinal region is negative for pain increase. Palpation of lumbar sacral junction is tender on the center area and also tender on left paraspinal region. . Neuro General: patient oriented x3 Gait exam (Neuro): Antalgic gait present and Assisted gait required Extrem Other: lateral as well as medial rotation of the bilateral hip joints caused pain exacerbation in the bilateral groins. Assessment & Plan Assessment & Plan (1) Postlaminectomy syndrome, lumbar: Code(s): M96.1 - Postlaminectomy syndrome, not elsewhere classified (2) Spinal cord stimulator dysfunction: Code(s): T85.192A - Other mechanical complication of implanted electronic neurostimulator of spinal cord electrode (lead), initial encounter (3) Peripheral neuropathy: Code(s): G62.9 - Polyneuropathy, unspecified (4) H/O compression fracture of spine: Code(s): Z87.81 - Personal history of (healed) traumatic fracture (5) History of prediabetes: Code(s): Z87.898 - Personal history of other specified conditions (6) Spondylosis of lumbosacral spine with radiculopathy: Code(s): M47.27 - Other spondylosis with radiculopathy, lumbosacral region (7) Chronic pain syndrome: Code(s): G89.4 - Chronic pain syndrome (8) Piriformis syndrome of left side: Code(s): G57.02 - Lesion of sciatic nerve, left lower limb (9) Osteoarthritis, hip, bilateral: Code(s): M16.0 - Bilateral primary osteoarthritis of hip (10) Hip pain, bilateral: Code(s): M25.551 - Pain in right hip; M25.552 - Pain in left hip Plan Initially there were good results of Nevro SCS implant. However patient now states that the stimulation started to fade out. He was sent for x-ray of the thoracic spine today and the position of the electrodes seem to be appropriate. His top electrode disposition at T8 level and the bottom electrode position at T9 level, the both electrodes are positioned strictly posterior. he has severe left more than right foraminal stenosis at L4-5 and L5-S1, with compression of both traversing L5 and exiting L4 nerve root at the left L4-5, there is central canal stenosis moderate to severe at L5-S1 mostly due to spondylolisthesis secondary to the pars defect. L4-5 also has evidence of laminectomy changes and scar tissues in the epidural space. There are some Modic type changes in the MRI which also could contribute to the pain generation. In the past he had TFESI with moderate success however the effect did not last long enough and he was offered Nevro SCS. attention was attracted today to the fact that his pain starts in bilateral buttocks and radiates in the bilateral lateral hips and bilateral groins. The rotation of the hip laterally and medially causes exacerbation of the groin pain. Diagnostic intra-articular hip local anesthesia injection was not very conclusive because patient for the 1st 6 hours did not perform the maneuvers which would aggravates his pain. I decided to perform therapeutic injection on the left side using steroids and by virtue of the comparison of the sides I will make a decision what actually pain generator of this patient days. Coding Level of Care Code Est Pt Level 3 (03405) Diagnoses Postlaminectomy syndrome, lumbar M96.1 Spinal cord stimulator dysfunction T85.192A Peripheral neuropathy G62.9 H/O compression fracture of spine Z87.81 History of prediabetes Z87.898 Spondylosis of lumbosacral spine with radiculopathy M47.27 Chronic pain syndrome G89.4 Piriformis syndrome of left side G57.02 Osteoarthritis, hip, bilateral M16.0 Hip pain, bilateral M25.551; M25.552
[2023-01-12 10:44] VITALS: BP 140/76; PULSE 67; RESP 14; O2SAT 96; BMI 25.5
== END 2023-01-12 10:52 | disposition home or self-care (01) ==
PROVIDERS: PCP Pediatrics; Visit Provider Anesthesiology
DX: M96.1 Postlaminectomy syndrome, not elsewhere classified (principal); T85.192A Other mechanical complication of implanted electronic neurostimulator of spinal cord electrode (lead), initial encounter; G62.9 Polyneuropathy, unspecified; Z87.81 Personal history of (healed) traumatic fracture; Z87.898 Personal history of other specified conditions; M47.27 Other spondylosis with radiculopathy, lumbosacral region; G89.4 Chronic pain syndrome; G57.02 Lesion of sciatic nerve, left lower limb; M16.0 Bilateral primary osteoarthritis of hip; M25.551 Pain in right hip; M25.552 Pain in left hip
CPT/HCPCS: 99213

== ENCOUNTER → 2023-01-12 10:29 | Outpatient (BNVA) | payer MEDICARE, OTHER, SELFPAY | PROVIDERS: PCP Pediatrics; Visit Provider Anesthesiology | DX: M96.1 Postlaminectomy syndrome, not elsewhere classified (principal); M16.0 Bilateral primary osteoarthritis of hip; M47.27 Other spondylosis with radiculopathy, lumbosacral region; G62.9 Polyneuropathy, unspecified; G57.02 Lesion of sciatic nerve, left lower limb; M25.551 Pain in right hip; M25.552 Pain in left hip; Z87.898 Personal history of other specified conditions; Z87.81 Personal history of (healed) traumatic fracture; Z96.82 Presence of neurostimulator | CPT/HCPCS: 99212 ==

== ENCOUNTER 2023-01-31 06:47 | Outpatient (REF) | payer MEDICARE, OTHER, SELFPAY ==
--- NOTE | ~2023-01-31 | FL_ITS ---
EXAMINATION: XR FLUOROSCOPY WITH IMAGES CLINICAL INFORMATION: Bilateral primary osteoarthritis of hip. COMPARISON: None available. TECHNIQUE: Fluoroscopy Supervised By: Dr. Sheldon Rosado. Fluoroscopy Time: 0.1 minute. Cumulative Dose: 2.65 mGy. DAP: 0.0461 Gycm2. Images: 1. FINDINGS: Image demonstrates needle placement and contrast injection of the left hip joint FL/FL guidance in treatment room IMPRESSION: Fluoroscopy guidance for pain management procedure
== END 2023-01-31 06:48 | disposition home or self-care (01) ==
LOC: CF 06:47
PROVIDERS: PCP Pediatrics; Visit Provider Anesthesiology
DX: M16.0 Bilateral primary osteoarthritis of hip (principal); M96.1 Postlaminectomy syndrome, not elsewhere classified; M47.27 Other spondylosis with radiculopathy, lumbosacral region
CPT/HCPCS: 20610; J2795; J3301; Q9967

== ENCOUNTER 2023-01-31 14:44 | Outpatient (AMB) | payer MEDICARE, OTHER, SELFPAY ==
--- NOTE | 2023-01-31 14:57 | MHC.OFFVIS ---
Intake Vital Signs 01/31/23 15:27 01/31/23 15:28 Height 5 ft 7 in 5 ft 7 in Weight 163 lb 163 lb BMI 25.5 25.5 BP 110/58 L 110/68 Blood Pressure Location Lt brachial Lt brachial Position Sitting Sitting Respiration 12 12 Pulse 60 60 Pulse Source Pulse Oximeter Pulse Oximeter Pulse Oximetry (%) 98 99 Oxygen Delivery Method Room Air Room Air Comment pre-op post-op Intake Visit Reasons: L INTRA-ARTICULAR HIP STEROID INJ/LOCAL Allergies No Known Allergies Allergy (Verified 01/31/23 15:29) PFSH Medical History (Updated 12/22/22 @ 09:04 by Sheldon Rosado MD) Degenerative disc disease, lumbar Hx of sleep apnea BPH (benign prostatic hyperplasia) Depression HLD (hyperlipidemia) HTN (hypertension) History of prediabetes Surgical History Hx of colonoscopy Hx of carpal tunnel repair Hx of inguinal hernia repair Hx of bilateral cataract extraction Hx of tonsillectomy Previous back surgery Social History Patient Tobacco Use Status: Never used Tobacco Physical Exam Vital Signs: Last Vital Signs Pulse 60 01/31/23 15:28 Resp 12 01/31/23 15:28 BP 110/68 01/31/23 15:28 Pulse Ox 99 01/31/23 15:28 Oxygen Delivery Method Room Air 01/31/23 15:28 BMI result Body Mass Index 25.5 Assessment & Plan Assessment & Plan (1) Postlaminectomy syndrome, lumbar: Code(s): M96.1 - Postlaminectomy syndrome, not elsewhere classified (2) Spinal cord stimulator dysfunction: Code(s): T85.192A - Other mechanical complication of implanted electronic neurostimulator of spinal cord electrode (lead), initial encounter (3) Peripheral neuropathy: Code(s): G62.9 - Polyneuropathy, unspecified (4) H/O compression fracture of spine: Code(s): Z87.81 - Personal history of (healed) traumatic fracture (5) History of prediabetes: Code(s): Z87.898 - Personal history of other specified conditions (6) Spondylosis of lumbosacral spine with radiculopathy: Code(s): M47.27 - Other spondylosis with radiculopathy, lumbosacral region (7) Chronic pain syndrome: Code(s): G89.4 - Chronic pain syndrome Plan: Left hip steroid injection Informed consent was explained to the patient. All questions were explained and? answered.? The patient was taken inside the operating room where he was positioned right lateral decubitus on the operating table.? [place] monitors were applied.? Patient was not sedated.? Time-out was performed delineating correct site, side, the nature of the procedure, patient's allergy, preoperative antibiotic if needed.? All operating room staff was participating in OR time-out procedure.? The patient stated his name. Non dependent LEFT hip was prepped with ChloraPrep and draped with sterile towels.? Sterilely draped C-arm was brought over the operating field and the picture of bilateral hip joints were obtained on the screen.? The smaller joint was chosen as the target for the injection.? The trochanter position was noted on the screen.? The projection of the trochanter to the skin was noted, the direction of the femoral neck was noted.? The skin was anesthetized using 2% lidocaine at the trochanter area.? 22 gauge 5 in needle was inserted through the skin and advanced to the hip joint silhouette on anterior posterior view.? When needle entered the joint the injection of the contrast was performed demonstrating intra-articular spread of the contrast.? After that 5 cc of bupivacaine mixed with 40 mg of Kenalog was injected into the area.? The needle was removed sterile dressing was applied. (8) Piriformis syndrome of left side: Code(s): G57.02 - Lesion of sciatic nerve, left lower limb (9) Osteoarthritis, hip, bilateral: Code(s): M16.0 - Bilateral primary osteoarthritis of hip (10) Hip pain, bilateral: Code(s): M25.551 - Pain in right hip; M25.552 - Pain in left hip Plan Initially there were good results of Nevro SCS implant. However patient now states that the stimulation started to fade out. He was sent for x-ray of the thoracic spine today and the position of the electrodes seem to be appropriate. His top electrode disposition at T8 level and the bottom electrode position at T9 level, the both electrodes are positioned strictly posterior. he has severe left more than right foraminal stenosis at L4-5 and L5-S1, with compression of both traversing L5 and exiting L4 nerve root at the left L4-5, there is central canal stenosis moderate to severe at L5-S1 mostly due to spondylolisthesis secondary to the pars defect. L4-5 also has evidence of laminectomy changes and scar tissues in the epidural space. There are some Modic type changes in the MRI which also could contribute to the pain generation. In the past he had TFESI with moderate success however the effect did not last long enough and he was offered Nevro SCS. attention was attracted today to the fact that his pain starts in bilateral buttocks and radiates in the bilateral lateral hips and bilateral groins. The rotation of the hip laterally and medially causes exacerbation of the groin pain. Diagnostic intra-articular hip local anesthesia injection was not very conclusive because patient for the 1st 6 hours did not perform the maneuvers which would aggravates his pain. I decided to perform therapeutic injection on the left side using steroids and by virtue of the comparison of the sides I will make a decision what actually pain generator of this patient days. Orders: Orders FL guidance in treatment room Today M16.0 - Bilateral primary osteoarthritis of hip Coding Level of Care Code Procedure Only Diagnoses Postlaminectomy syndrome, lumbar M96.1 Spinal cord stimulator dysfunction T85.192A Peripheral neuropathy G62.9 H/O compression fracture of spine Z87.81 History of prediabetes Z87.898 Spondylosis of lumbosacral spine with radiculopathy M47.27 Chronic pain syndrome G89.4 Piriformis syndrome of left side G57.02 Osteoarthritis, hip, bilateral M16.0 Hip pain, bilateral M25.551; M25.552
[2023-01-31 15:27] VITALS: BP 110/58; PULSE 60; RESP 12; O2SAT 98; BMI 25.5
[2023-01-31 15:28] VITALS: BP 110/68; PULSE 60; RESP 12; O2SAT 99; BMI 25.5
== END 2023-01-31 15:17 | disposition home or self-care (01) ==
LOC: HO.PMCPRC 14:44
PROVIDERS: PCP Pediatrics; Visit Provider Anesthesiology
DX: M25.552 Pain in left hip (principal)
CPT/HCPCS: 20610; 77002

== ENCOUNTER 2023-03-06 09:48 | Outpatient (AMB) | payer MEDICARE, OTHER, SELFPAY ==
--- NOTE | 2023-03-06 09:52 | MHC.OFFVIS ---
Intake Vital Signs 03/06/23 09:59 Height 5 ft 7 in Weight 164 lb 8 oz BMI 25.8 BP 138/86 Blood Pressure Location Lt brachial Position Sitting Respiration 14 Pulse 72 Pulse Source Pulse Oximeter Pulse Oximetry (%) 96 Oxygen Delivery Method Room Air Intake Visit Reasons: L INTRA-ARTICULAR HIP STEROID INJ 01/31/23 Allergies No Known Allergies Allergy (Verified 03/06/23 10:01) HPI HPI Comments History of Present Illness Details Jairo is back in my office for the evaluation of the results of therapeutic left hip intra-articular steroid injection he reports more than 50% pain improvement for the last 30 days he reports better mobility. However he also reports improvement in the right hip as well. Most likely the pain relieve is secondary to systemic action of the steroid medications. I offered the patient to continue observation in joint pain relief. He will schedule an appointment with me in the pain will come back. Will be planning her lateral right steroid injection. Results of bilateral diagnostic steroid injections are non conclusive: Patient reports about 40% pain improvement on the procedure, however he reports that he failed to perform most painful maneuvers in for 6 hours which would be aggravating his pain so he missed the most crucial time to evaluate the procedure. I decided to offer him therapeutic left hip injection now with steroids and by virtue of the comparison of the right and left side determine whether not the hip joints are his pain generator. I will schedule the procedure accordingly. Prior: evaluation of the SCS position of the leads electrode leads are properly positioned in the thoracic spine. He experience the complaint on pain in the bilateral buttocks, bilateral hips and bilateral groins while standing and walking. He reports exacerbation of the pain with the attempts to rotate bilateral hips laterally as well as medially. Bilateral hip osteoarthritis is suspected and the patient is sent for the bilateral hip x-rays. He had reported moderate pain relieve with left piriformis injection, however that injection was done with steroids and may have to be a systemic anti-inflammatory steroid effect. We decided that I will schedule him for bilateral hip x-ray and schedule him for bilateral diagnostic hip injection without any steroids. Prior:implant Nevro SCS which was done on 07/08/2022 ?He had succesful trial on 06/03/2022.? left L4-5 L5-S1 transforaminal epidural steroid injection was performed on 04/19/2022.? He reports almost a month of complete pain relief.? He reports after that pain is slowly starting to come back.? He reports better mobility still better activities of daily living, and better social interactions.? However he is interested in some more continual and more permanent pain relief.? He was subject of psychological evaluation by a [facility] and he was approved for the interventional procedures.? He wants me to schedule him for SCS trial.? He received left L4-5 L5-S1 transforaminal epidural steroid injection previously on? 01/04/2022.? It has been almost 1 month since the injection.? He reports better mobility better interactions better activities of daily living.? He reports 85% pain improvement.? He is asking if his pain will come back how soon we can repeat the procedure. ?He is ambulating with a cane . the pain started about 4-5 years ago without any inciting events and has progressively worsened. He is s/p L4-L5 fusion with Dr. Jeffries in approximately 2018. He denies any hardware. He did sustain a compression fracture s/p fall about two years ago, evaluated again by Dr. Jeffries with no surgical intervention offered. He reports the pain starts in the center of his low back and radiates to across the back then travels down the left leg laterally to the dorsal aspect of his foot. He also reports neuropathy from his feet radiating to his calves/knees with associated numbness and tingling. He notes that he is unable to walk barefoot unless he is ambulating on a soft surface otherwise it will result in severe pain. He reports needing bilateral foot braces due to drop foot which began to develop about 1-2 years ago. He also has a shoe lift on the left due to a reported 1 inch leg length discrepancy which has been present since childhood. ?The pain is exacerbated by prolonged positioning as well as ambulation. He does report some alleviation with laying flat. He has been taking tylenol with little to no effect on pain.? He has attempted physical therapy in the past about two years ago for approximately one year with minimal alleviation in pain and was mainly to increase strength.? Denies any chiropractic manipulation, massage or acupuncture. Denies any previous back injections and any recent lumbar spine MRI or EMG of BLE.. [facility] Medical History (Updated 12/22/22 @ 09:04 by Sheldon Rosado MD) Degenerative disc disease, lumbar Hx of sleep apnea BPH (benign prostatic hyperplasia) Depression HLD (hyperlipidemia) HTN (hypertension) History of prediabetes Surgical History Hx of colonoscopy Hx of carpal tunnel repair Hx of inguinal hernia repair Hx of bilateral cataract extraction Hx of tonsillectomy Previous back surgery Social History Patient Tobacco Use Status: Never used Tobacco Review of Systems Const All systems reviewed & are unremarkable except as noted in HPI and below Physical Exam Const General: cooperative and no acute distress Nutritional Appearance: average body habitus Orientation/consciousness: patient oriented x3 Limitations: ambulation with cane HEENT Head: Yes normal to inspection, Yes normocephalic and Yes atraumatic Ears: hearing grossly normal bilaterally Eyes General: appearance normal, both eyes and all related structures Neck Neck: Yes normal visual inspection, Yes supple and Yes no JVD Resp Effort & Inspection: normal respiratory effort, able to speak in complete sentences and no audible wheezes Cardio Jugular venous distension: no JVD Peripheral pulses: Peripheral pulses 2+ throughout (no appreciable rhythmic abnormalities) Back/Spine/Pelvis Other: Patient able to walk on heels with minimal difficulties and unable to walk on tip toes due to weakness (pt with foot drop currently wearing orthotics). Can flex forward almost touching the ground and extend to 10-20 degrees before experiencing lumbar pain. Reports more pain with lumbar extension. Demonstrates 4/5 strength of quadriceps bilaterally as well as flexion bilateral feet against resistance. Significant weakness with dorsiflexion of bilateral feet. Straight leg rise with dorsiflexion negative on the right and the positive on the left. DTR diminished. Facet loading test negative. Kamran test is negative bilaterally. Pelvic compression test is negative bilaterally. Palpation of the lumbar spine paraspinal spinal region is negative for pain increase. Palpation of lumbar sacral junction is tender on the center area and also tender on left paraspinal region. . Neuro General: patient oriented x3 Gait exam (Neuro): Antalgic gait present and Assisted gait required Extrem Other: lateral as well as medial rotation of the bilateral hip joints caused pain exacerbation in the bilateral groins. Assessment & Plan Assessment & Plan (1) Postlaminectomy syndrome, lumbar: Code(s): M96.1 - Postlaminectomy syndrome, not elsewhere classified (2) Spinal cord stimulator dysfunction: Code(s): T85.192A - Other mechanical complication of implanted electronic neurostimulator of spinal cord electrode (lead), initial encounter (3) Peripheral neuropathy: Code(s): G62.9 - Polyneuropathy, unspecified (4) H/O compression fracture of spine: Code(s): Z87.81 - Personal history of (healed) traumatic fracture (5) History of prediabetes: Code(s): Z87.898 - Personal history of other specified conditions (6) Spondylosis of lumbosacral spine with radiculopathy: Code(s): M47.27 - Other spondylosis with radiculopathy, lumbosacral region (7) Chronic pain syndrome: Code(s): G89.4 - Chronic pain syndrome (8) Piriformis syndrome of left side: Code(s): G57.02 - Lesion of sciatic nerve, left lower limb (9) Osteoarthritis, hip, bilateral: Code(s): M16.0 - Bilateral primary osteoarthritis of hip (10) Hip pain, bilateral: Code(s): M25.551 - Pain in right hip; M25.552 - Pain in left hip Plan Initially there were good results of Nevro SCS implant. However patient now states that the stimulation started to fade out. He was sent for x-ray of the thoracic spine today and the position of the electrodes seem to be appropriate. His top electrode disposition at T8 level and the bottom electrode position at T9 level, the both electrodes are positioned strictly posterior. he has severe left more than right foraminal stenosis at L4-5 and L5-S1, with compression of both traversing L5 and exiting L4 nerve root at the left L4-5, there is central canal stenosis moderate to severe at L5-S1 mostly due to spondylolisthesis secondary to the pars defect. L4-5 also has evidence of laminectomy changes and scar tissues in the epidural space. There are some Modic type changes in the MRI which also could contribute to the pain generation. In the past he had TFESI with moderate success however the effect did not last long enough and he was offered Nevro SCS. attention was attracted today to the fact that his pain starts in bilateral buttocks and radiates in the bilateral lateral hips and bilateral groins. The rotation of the hip laterally and medially causes exacerbation of the groin pain. Diagnostic intra-articular hip local anesthesia injection was not very conclusive because patient for the 1st 6 hours did not perform the maneuvers which would aggravates his pain. I performed left-sided diagnostic hip steroid injection and he reported more than 50% pain improvement for 1 month after the procedure. He also reported improvement in the right-sided pain. We decided that we will perform right-sided injection next time and see how this steroid injection will help the patient's pain. Currently patient is enjoying low level of pain. He will schedule an appointment when his pain will come back. Coding Level of Care Code Est Pt Level 3 (25479) Diagnoses Postlaminectomy syndrome, lumbar M96.1 Spinal cord stimulator dysfunction T85.192A Peripheral neuropathy G62.9 H/O compression fracture of spine Z87.81 History of prediabetes Z87.898 Spondylosis of lumbosacral spine with radiculopathy M47.27 Chronic pain syndrome G89.4 Piriformis syndrome of left side G57.02 Osteoarthritis, hip, bilateral M16.0 Hip pain, bilateral M25.551; M25.552
[2023-03-06 09:59] VITALS: BP 138/86; PULSE 72; RESP 14; O2SAT 96; BMI 25.8
== END 2023-03-06 10:08 | disposition home or self-care (01) ==
PROVIDERS: PCP Pediatrics; Visit Provider Anesthesiology
DX: M96.1 Postlaminectomy syndrome, not elsewhere classified (principal); T85.192A Other mechanical complication of implanted electronic neurostimulator of spinal cord electrode (lead), initial encounter; G62.9 Polyneuropathy, unspecified; Z87.81 Personal history of (healed) traumatic fracture; Z87.898 Personal history of other specified conditions; M47.27 Other spondylosis with radiculopathy, lumbosacral region; G89.4 Chronic pain syndrome; G57.02 Lesion of sciatic nerve, left lower limb; M16.0 Bilateral primary osteoarthritis of hip; M25.551 Pain in right hip; M25.552 Pain in left hip
CPT/HCPCS: 99213

== ENCOUNTER → 2023-03-06 09:48 | Outpatient (BNVA) | payer MEDICARE, OTHER, SELFPAY | PROVIDERS: PCP Pediatrics; Visit Provider Anesthesiology | DX: T85.192A Other mechanical complication of implanted electronic neurostimulator of spinal cord electrode (lead), initial encounter (principal); M96.1 Postlaminectomy syndrome, not elsewhere classified; M47.27 Other spondylosis with radiculopathy, lumbosacral region; M16.0 Bilateral primary osteoarthritis of hip; G62.9 Polyneuropathy, unspecified; G89.4 Chronic pain syndrome; G57.02 Lesion of sciatic nerve, left lower limb; M25.551 Pain in right hip; M25.552 Pain in left hip; Z87.81 Personal history of (healed) traumatic fracture; Z87.898 Personal history of other specified conditions | CPT/HCPCS: 99212 ==